=== PATIENT | female | born 1955 | race Caucasian/White ===

== ENCOUNTER 2016-12-22 19:48 | Emergency (ER) | payer OTHER ==
[2016-12-22 22:31] LABS: PLATELET COUNT 282 x10^3mcL (130-400); RED CELL DISTRIBUTION WIDTH 14.2 % (11.5-14.5)
[2016-12-22 22:41] LABS: CALCIUM 9.6 mg/dL (8.5-10.1); CARBON DIOXIDE 29.5 mmol/L (21-32); CHLORIDE SERUM 104 mmol/L (98-107); CREATININE SERUM 0.9 mg/dL (0.6-1.0); GFR1 > 60 mL/min; GLUCOSE SERUM 94 mg/dL (74-106); POTASSIUM SERUM 3.7 mmol/L (3.5-5.1); SODIUM SERUM 139 mmol/L (136-145)
[2016-12-22 22:45] LABS: ALKALINE PHOSPHATASE 288 U/L (46-116); ALT/SGPT 122 U/L (14-59); AST/SGOT 68 U/L (15-37); BILIRUBIN TOTAL 0.44 mg/dL (0.20-1.00); LIPASE 267 IU/L (73-393); TOTAL PROTEIN, SERUM 7.9 g/dL (6.4-8.2)
[2016-12-22 22:47] LABS: AMYLASE 126 U/L (25-115)
[2016-12-23 02:41] VITALS: BP 118/69
== END 2016-12-23 02:41 | disposition home or self-care (01) ==
LOC: ED 19:48
PROVIDERS: Emergency Medicine
DX: R19.7 Diarrhea, unspecified (principal); R11.10 Vomiting, unspecified; R10.9 Unspecified abdominal pain; Z88.0 Allergy status to penicillin
CPT/HCPCS: J2270; J2405; Q0092

== ENCOUNTER 2017-01-14 18:52 | Inpatient (IN) | payer OTHER ==
[~2017-01-14] VITALS: Ht 152.4 cm; Wt 45.6 kg
[2017-01-14 19:34] LABS: BASOPHIL % 0.4 % (0-2); PLATELET COUNT 210 x10^3mcL (130-400); RED CELL DISTRIBUTION WIDTH 13.8 % (11.5-14.5)
[2017-01-14 19:36] LABS: CALCIUM 9.2 mg/dL (8.5-10.1); CARBON DIOXIDE 27.1 mmol/L (21-32); POTASSIUM SERUM 4.1 mmol/L (3.5-5.1)
[2017-01-14 19:40] LABS: ALBUMIN 3.7 g/dL (3.4-5.0); BILIRUBIN TOTAL 0.63 mg/dL (0.20-1.00); TOTAL PROTEIN, SERUM 7.1 g/dL (6.4-8.2)
[2017-01-14] MEDS ORDERED: GABAPENTIN400 M1 PO (21:49)
[2017-01-14] MEDS ORDERED: LEVOTHYROXIN0.075 M2 PO (21:50)
[2017-01-14] MEDS ORDERED: XAN5 PO (21:50)
[2017-01-14] MEDS ORDERED: ZOF4 PO (21:50)
[2017-01-14 22:42] LABS: T3 TOTAL 0.66 ng/mL
[2017-01-14 22:45] LABS: FREE T4 1.17 ng/dL (0.76-1.46); FREE THYROXINE INDEX 2.8 ug/dL (1.4-4.5); T4(THYROXINE) 8.3 ug/dL (4.7-13.3)
[2017-01-14 22:53] VITALS: BP 145/88
[2017-01-14 23:12] LABS: MAGNESIUM 2.1 mg/dL (1.8-2.4); PHOSPHOROUS 3.1 mg/dL (2.5-4.9)
[2017-01-14 23:16] LABS: CHOLESTEROL/HDL RATIO 2.3
[2017-01-15 03:55] LABS: microscopic required? NO
[2017-01-15 04:03] LABS: urine erythrocyte NEGATIVE (NEGATIVE)
[2017-01-15 04:15] LABS: AMPHETAMINE QUAL UR NONE DETECTED (NEG <=1000)
[2017-01-15 05:10] VITALS: BP 121/69
[2017-01-15 06:30] LABS: BASOPHIL % 0.6 % (0-2); PLATELET COUNT 181 x10^3mcL (130-400); RED CELL DISTRIBUTION WIDTH 14.2 % (11.5-14.5)
[2017-01-15 06:33] LABS: CALCIUM 8.2 mg/dL (8.5-10.1); CARBON DIOXIDE 28.3 mmol/L (21-32); CHLORIDE SERUM 107 mmol/L (98-107); CREATININE SERUM 0.9 mg/dL (0.6-1.0); GFR1 > 60 mL/min; GLUCOSE SERUM 82 mg/dL (74-106); MAGNESIUM 2.1 mg/dL (1.8-2.4); PHOSPHOROUS 3.5 mg/dL (2.5-4.9); POTASSIUM SERUM 4.6 mmol/L (3.5-5.1); SODIUM SERUM 141 mmol/L (136-145)
[2017-01-15 09:43] VITALS: BP 134/63
[2017-01-15 13:19] VITALS: BP 103/69
[2017-01-15 18:30] VITALS: BP 141/72
[2017-01-15 21:43] VITALS: BP 128/79
[2017-01-16 05:37] VITALS: BP 130/84
[2017-01-16 07:19] LABS: BASOPHIL % 0.4 % (0-2); PLATELET COUNT 195 x10^3mcL (130-400); RED CELL DISTRIBUTION WIDTH 14.1 % (11.5-14.5)
[2017-01-16 07:25] LABS: CALCIUM 8.2 mg/dL (8.5-10.1); CARBON DIOXIDE 25.1 mmol/L (21-32); CHLORIDE SERUM 103 mmol/L (98-107); CREATININE SERUM 0.9 mg/dL (0.6-1.0); GFR1 > 60 mL/min; GLUCOSE SERUM 83 mg/dL (74-106); POTASSIUM SERUM 4.1 mmol/L (3.5-5.1); SODIUM SERUM 132 mmol/L (136-145)
[2017-01-16 09:24] VITALS: BP 119/74
[2017-01-16 09:36] LABS: CALCIUM 8.6 mg/dL (8.5-10.1); CARBON DIOXIDE 27.1 mmol/L (21-32); CHLORIDE SERUM 103 mmol/L (98-107); CREATININE SERUM 0.9 mg/dL (0.6-1.0); GFR1 > 60 mL/min; GLUCOSE SERUM 101 mg/dL (74-106); POTASSIUM SERUM 3.7 mmol/L (3.5-5.1); SODIUM SERUM 136 mmol/L (136-145)
[2017-01-16] MEDS ORDERED: OMEPRAZOLE40 M1 PO (16:49)
[2017-01-16] MEDS ORDERED: CARAFATE1 GM PO (17:00)
[2017-01-16] MEDS ORDERED: NORCO1 TA2 PO (17:02)
[2017-01-16] MEDS ORDERED: COLACE100 MG PO (17:02)
[2017-01-16 17:42] VITALS: BP 119/74
[2017-01-16 17:52] VITALS: BP 124/68
[2017-01-16 17:53] VITALS: BP 124/68
[2017-01-16 18:18] VITALS: BP 124/68
== END 2017-01-16 19:00 | disposition home or self-care (01) | DRG 392 ==
LOC: ED 18:52 → MU 22:11 → DU 22:11 → MU 01-16 09:41
PROVIDERS: Emergency Medicine; Internal Medicine Gastroenterology; ADMIT Family Medicine
PROC: 0DB78ZX Excision of Stomach, Pylorus, Via Natural or Artificial Opening Endoscopic, Diagnostic (ICD-10-PCS; principal; 2017-01-15 11:00)
DX: K29.70 Gastritis, unspecified, without bleeding (principal); K56.7 Ileus, unspecified; E03.9 Hypothyroidism, unspecified; F41.9 Anxiety disorder, unspecified; E78.5 Hyperlipidemia, unspecified; R74.0 Nonspecific elevation of levels of transaminase and lactic acid dehydrogenase [LDH]; Z88.0 Allergy status to penicillin; Z79.899 Other long term (current) drug therapy
CPT/HCPCS: 43235; 83880; 84439; 87046; 87046-59; C9113; J1200; J1610; J1885; J2250; J2270; J2310; J2405; J2550; J3010; J3490; J7030

== ENCOUNTER 2017-06-26 12:56 | Inpatient (IN) | payer OTHER ==
[~2017-06-26] VITALS: Ht 149.9 cm; Wt 52.7 kg
[~2017-06-26 12:56] MED LIST: CARAFATE1 GM PO; COLACE100 MG PO; GABAPENTIN400 M1 PO; LEVOTHYROXIN0.075 M2 PO; NORCO1 TA2 PO; OMEPRAZOLE40 M1 PO; XAN5 PO; ZOF4 PO
--- NOTE | 2017-06-26 13:27 | NUR ---
Patient came into the ER it s a day to be evaluated for the complaints of nausea, vomiting, and diarrhea which has been ongoing for the last 8 days. Patient reports that she is having at least 10 episodes of each every day.Patient also has a complaint of generalized abdominal pain which has more pain in the area of the epigastric region. Patient denies any hematemesis and blood in the stool. Patient does not have any objective signs of dehydration. Medical evalaution completed by dr. Stevens.
--- NOTE | 2017-06-26 13:35 | NUR ---
ED ASSESSMENT DOCUMENTED BY WILLIAMS FUENTES
[2017-06-26 13:54] LABS: BASOPHIL % 0.4 % (0-2); PLATELET COUNT 229 x10^3mcL (130-400); RED CELL DISTRIBUTION WIDTH 14.3 % (11.5-14.5)
[2017-06-26 14:04] LABS: CALCIUM 8.6 mg/dL (8.5-10.1); CARBON DIOXIDE 24.1 mmol/L (21-32); CHLORIDE SERUM 98 mmol/L (98-107); CREATININE SERUM 0.9 mg/dL (0.6-1.0); GFR1 > 60 mL/min; GLUCOSE SERUM 100 mg/dL (74-106); POTASSIUM SERUM 4.2 mmol/L (3.5-5.1); SODIUM SERUM 130 mmol/L (136-145)
[2017-06-26 14:17] LABS: UA SPECIFIC GRAVITY <=1.005 (1.005-1.035); microscopic required? YES; urine erythrocyte 1+ (NEGATIVE)
[2017-06-26 14:19] LABS: ALBUMIN 3.7 g/dL (3.4-5.0); ALKALINE PHOSPHATASE 129 U/L (46-116); ALT/SGPT 52 U/L (14-59); AMYLASE 118 U/L (25-115); AST/SGOT 33 U/L (15-37); BILIRUBIN TOTAL 0.31 mg/dL (0.20-1.00); CHOLESTEROL 195 mg/dL (<200); HDL CHOLESTEROL 51 mg/dL (40-60); LIPASE 243 IU/L (73-393); T4(THYROXINE) 9.9 ug/dL (4.7-13.3); TOTAL PROTEIN, SERUM 7.2 g/dL (6.4-8.2)
[2017-06-26 14:38] LABS: AMPHETAMINE QUAL UR NONE DETECTED (NEG <=1000)
[2017-06-26] MEDS ORDERED: PROTONIX40 MG PO (16:37)
[2017-06-26 17:00] LABS: MAGNESIUM 1.9 mg/dL (1.8-2.4); PHOSPHOROUS 3.4 mg/dL (2.5-4.9)
[2017-06-26 17:05] LABS: T3 TOTAL 0.67 ng/mL
--- NOTE | 2017-06-26 17:14 | NUR ---
REPORT CALLED TO PATRICIA ON TELEMETRY UNIT AT THIS TIME.
--- NOTE | 2017-06-26 17:30 | NUR ---
RECEIVED PT FROM ED VIA [facility], CAME IN DUE TO ABDOMINAL PAIN, NAUSEA, VOMITING AND DIARRHEA FOR 8 DAYS. AAOX4. NO SOB NOTED. DENIES CHEST PAIN/PRESSURE. C/O 10/10 PRESSURE ABDOMINAL PAIN AND MILD NAUSEA. STATED THAT SHE HAD EPISODES OF VOMITING AND DIARRHEA APPLIED PSYCHOLOGY PROFESSOR. VOIDS. IV SITE PATENT AND INTACT. SIDE RAILS UPX2. CALL LIGHT ON REACH. ENDORSED TO PRIMARY NURSE DENNIS FOR CONTINUITY OF CARE.
[2017-06-26 17:35] VITALS: BP 127/77
[2017-06-26 17:36] LABS: FREE T4 1.43 ng/dL (0.76-1.46); T4(THYROXINE) 9.4 ug/dL (4.7-13.3)
[2017-06-26 17:39] VITALS: Ht 149.9 cm; Wt 52.7 kg
[2017-06-26 17:44] VITALS: BP 116/75
--- NOTE | 2017-06-26 17:57 | NUR ---
ZOFRAN 4 MG IVP GIVEN ORDERED FOR C/O NAUSEA.
--- NOTE | 2017-06-26 18:28 | NUR ---
PT LEFT TO RADIOLOGY
--- NOTE | 2017-06-26 19:27 | NUR ---
REMAINS IN NO DISTRESS, AWAKE AND ALERT. BACK FROM CT. C/O ABD. DISCOMFORT. WILL BE MEDICATED BY NOC SHIFT NURSE. IVF INFUSING WELL. FAMILY AT BEDSIDE. WILL BE ENDORSED.
--- NOTE | 2017-06-26 20:00 | NUR ---
RECEIVED PT IN BED RESTING, LUNG SOUNDS CLEAR. TELE21 SHOWS NSR. NO CHEST PAIN NOTED. BS ACTIVE IN ALL FOUR QUADS. ABD APPEARS DISTENDED, SOFT. PT C/O PAIN TO MID ABD AND HEADACHE, MEDICATED WITH PERCOCET. IVF ONGOING, NS AT 90ML/HR TO LFA. SHIFT ASSESSMENT COMPLETED. CALL LIGHT WITHIN REACH. BED IS IN LOWEST POSITION. WILL CONTINUE TO MONITOR CLOSELY.
[2017-06-26 21:30] VITALS: BP 123/65
--- NOTE | 2017-06-26 21:55 | NUR ---
PT C/O DR ZEKE BARKER, AWAITING NEW ORDERS.
[2017-06-27] VITALS (7 sets, daily range): BP systolic 73–138; BP diastolic 40–79
--- NOTE | 2017-06-27 02:57 | NUR ---
PT APPEARS TO BE SLEEPING IN NO DISTRESS. IVF ONGOING. CALL LIGHT WITHIN REACH. WILL CONTINUE TO MONITOR CLOSELY.
--- NOTE | 2017-06-27 04:40 | NUR ---
PT C/O N/V, ZOFRAN GIVEN ORDERED. IVF ONGOING. CALL LIGHT WITHIN REACH. BED IS IN LOWEST POSITION. WILL CONTINUE TO MONITOR CLOSELY.
--- NOTE | 2017-06-27 06:04 | NUR ---
PT C/O PAIN TO ABD, N/V, MEDICATED WITH TORADOL, PT CANNOT TOLERATE ORAL MEDICATION AT THIS TIME. HELD ALL AM PO MEDICATION. CALL LIGHT WITHIN REACH. BED IS IN LOWEST POSITION. IVF ONGOING. WILL CONTINUE TO MONITOR CLOSELY.
[2017-06-27 06:30] LABS: BASOPHIL % 0.3 % (0-2); PLATELET COUNT 269 x10^3mcL (130-400); RED CELL DISTRIBUTION WIDTH 14.4 % (11.5-14.5)
[2017-06-27 06:42] LABS: CALCIUM 8.2 mg/dL (8.5-10.1); CARBON DIOXIDE 24.9 mmol/L (21-32); CHLORIDE SERUM 107 mmol/L (98-107); CREATININE SERUM 0.8 mg/dL (0.6-1.0); GFR1 > 60 mL/min; GLUCOSE SERUM 83 mg/dL (74-106); POTASSIUM SERUM 4.1 mmol/L (3.5-5.1); SODIUM SERUM 140 mmol/L (136-145)
--- NOTE | 2017-06-27 07:30 | NUR ---
PATIENT IS IN BED, AWAKE ALERT AND ORIENTED. [place] SPEAKING. C/O ABD PAIN. MEDICATED WT GI COCKTAIL ORDERED. IVF INFUSING WELL , SITE PATENT. RESP EVEN AND UNLABORED, LUNGS CLEAR ON ROOM AIR. NO DIARRHEA NOTED AT THIS TIME. AMBULATES AD ISAURO TO THE BATHROOM TELE 21 NSR. WILL CONTINUE TO MONITOR.
--- NOTE | 2017-06-27 08:15 | NUR ---
DR VIGIL AND MEDICAL TEAM INTO SEE PATIENT AND DISCUSS PLAN OF CARE.
--- NOTE | 2017-06-27 09:59 | NUR ---
PATIENT DOWN TO GI LAB AT THIS TIME FOR EGD. DR Laisha MCARTHUR WAS AT [facility] AND SPOKE TO THE PATIENT WITH BENGALI SPEAKING LOGISTICS PLANNING MANAGER AT BEDSIDE. CONSENT OBTAINED WITH USE OF LOGISTICS PLANNING MANAGER PHONE. PATIENT HAS BEEN NPO SINCE [facility] EXCEPT FOR MEDS. WILL CONTINUE TO MONITOR UPON RETURN TO THE FLOOR.
--- NOTE | 2017-06-27 12:02 | NUR ---
PATIENT DOWN TO GI LAB VIA BED AND RN AND TRANSPORTER AT THIS TIME.
--- NOTE | 2017-06-27 13:15 | NUR ---
PATIENT RETURNED FROM GI LAB VIA BED WITH ALFREDO HERNANDEZ AT BEDSIDE. PATIENT IS AWAKE AND ALERT. SITTING UP IN BED EATING LUNCH TRAY. NO FURTHER C/O PAIN AT THIS TIME. WILL CONTINUE TO MONITOR.
--- NOTE | 2017-06-27 16:30 | NUR ---
PATIENT IS IN BED. AWAKE ALERT AND ORIENTED. B/P 76/43. PATIENT DENIES ANY DIZZINESS OR WEAKNESS. DR BAY NOTIFIED. NEW ORDER FOR IV BOLUS.
--- NOTE | 2017-06-27 16:45 | NUR ---
IV BOLUS STARTED ORDERED. WILL CONTINUE TO MONITOR PATIENT. PATIENT REMAINS IN BED ALERT AND ORIENTED.
--- NOTE | 2017-06-27 18:35 | NUR ---
PATIENT SITTING UP IN BED. CONSUMED APPROX 80% OF HER DINNER TRAY. PATIENT C/O FEELING NAUSEATED. MEDICATED WITH ZOFRAN IV BY DAVID FUENTES ORDERED. PATIENT STATES SHE FEELS BETTER. NS BOLUS COMPLETED AND B/P 91/50. IVF INFUSING WELL AT 90ML/HR ORDERED. NO ACUTE DISTRESS NOTED. WILL ENDORSED TO [facility] NURSE.
--- NOTE | 2017-06-27 18:46 | NUR ---
I HAVE REVIEWED THE DATA COLLECTION BY TURNER (NAME): EVELIO BUSBY ENTERED ON (DATE/TIME): 06/27/17 I CONCUR WITH THE DATA AND ANY EXCEPTIONS OR COMMENTS ARE LISTED BELOW:
--- NOTE | 2017-06-27 19:53 | NUR ---
RECEIVED PT FROM PREVIOUS SHIFT. PT A/OX4. DENIES ABD PAIN. DENIES SOB ON RA. IV PATENT AND INFUSING WELL WITH NO S/S OF INFILTRATION. DENIES N/V. CALL LIGHT WITHIN REACH, BED IN LOW POSITION. WILL CONTINUE TO MONITOR.
--- NOTE | 2017-06-28 00:51 | NUR ---
PT C/O ITCHING TO BUE. BENADRYL PROVIDED. WILL CONTINUE TO MONITOR.
--- NOTE | 2017-06-28 01:31 | NUR ---
PT RESTING AT THIS TIME IN NO ACUTE DISTRESS. RR EVEN AND UNLABORED. IV PATENT. CALL LIGHT WITHIN REACH, BED IN LOW POSITION. WILL CONTINUE TO MONITOR.
[2017-06-28 05:42] VITALS: BP 100/55
[2017-06-28 06:51] LABS: CALCIUM 8.3 mg/dL (8.5-10.1); CARBON DIOXIDE 30.1 mmol/L (21-32); CHLORIDE SERUM 106 mmol/L (98-107); CREATININE SERUM 0.9 mg/dL (0.6-1.0); GFR1 > 60 mL/min; GLUCOSE SERUM 77 mg/dL (74-106); PHOSPHOROUS 3.5 mg/dL (2.5-4.9); POTASSIUM SERUM 4.5 mmol/L (3.5-5.1); SODIUM SERUM 138 mmol/L (136-145)
[2017-06-28 07:32] LABS: PLATELET COUNT 238 x10^3mcL (130-400); RED CELL DISTRIBUTION WIDTH 13.5 % (11.5-14.5)
[2017-06-28 07:36] LABS: BASOPHIL % 4.1 % (0-2)
--- NOTE | 2017-06-28 07:50 | NUR ---
RC'D PT RESTING IN BED WITH NO APPARENT SIGNS OF DISTRESS. PT A/A/O/X4, SPEECH CLEAR AND APPROPRIATE. ON TELE 21 WITH NSR. DENIES CHEST PAIN/PRESSURE. PALP PULSES, NO EDEMA NOTED. RESPIRATIONS EQUAL AND UNLABORED. LUNGS CTA. ON RA, DENIES SOB. ABDOMEN SOFT AND TENDER TO TOUCH. ACTIVE BS. DENIES N/V AT THIS TIME. VOIDS FREELY, DENIES BURNING. AMBUALTORY WITH BRP. SKIN W/D/I. DENIES PAIN AT THIS TIME. IV PATENT AND INFUSING. BED IN LOW POSITION. CALL LIGHT IN REACH. EDUCATED ON USING CALL LIGHT WHEN NEEDING ASSISTANCE. WILL CONTINUE TO MONITOR.
[2017-06-28 09:22] VITALS: BP 86/49
--- NOTE | 2017-06-28 09:30 | NUR ---
PT COMPLAINING OF NAUSEA. ADMINISTERED ZOFRAN IVP PRN PER MED REC. WILL CONTINUE TO MONITOR
--- NOTE | 2017-06-28 09:31 | NUR ---
HELD LISINOPRIL FOR LOW BP OF 86/49, HR 74. DR BAY NOTIFIED AND MADE AWARE. PT DENIES DIZZINESS/SOB. RESPIRATIONS EQUAL AND UNLABORED BILAT. BED IN LOW POSITION. PT EDUCATED TO USE CALL LIGHT WHEN NEEDING ASSISTANCE OUT OF BED DUE TO LOW BP. PT VERBALIZED UDNERSTANDING. CALL LIGHT IN REACH. WILL CONTINUE TO MONITOR.
--- NOTE | 2017-06-28 13:15 | NUR ---
PT RESTING IN BED WITH NO APPARENT SIGNS OF DISTRESS. RESPIRATIONS EQUAL AND UNLABORED. REPORTS PAIN IN ABDOMEN BUT DOES NOT WANT MEDICATION AT THIS TIME. BED IN LOW POSITION. CALL LIGHT IN REACH. WILL CONTINUE TO MONITOR.
[2017-06-28 13:19] VITALS: BP 101/53
--- NOTE | 2017-06-28 14:19 | NUR ---
PT COMPLAINING OF ABDOMINAL PAIN 02/20. RESPIRATIONS EQUAL AND UNLABORED. EDUCATED PT ON USING CALL LIGHT WHEN NEEDING ASSISTANCE DUE TO POSSIBLE SIDE EFFECTS. PT VERBALIZED UNDERSTANDING. BED IN LOW POSITION. CALL LIGHT IN REACH. WILL CONTINUE TO MONITOR.
[2017-06-28 14:34] VITALS: BP 101/53
[2017-06-28 17:57] VITALS: BP 98/62
--- NOTE | 2017-06-28 18:18 | NUR ---
TOOK OVER CARE OF PATIENT. PATIENT SITTING UP IN BED EATING DINNER. LAST BM /. IV AT 90ML/HR NS. PATIENT REPORTS THAT SHE STIL HAS SOME ABDOMINAL DISCOMFORT.
--- NOTE | 2017-06-28 19:40 | NUR ---
RECHECK THE PT B/P 120/67, MAP 85, HR 67, PT IS A/O X4, DENY ANY RESPIRATORY DISTRESS, DENY ANY PAIN OR DISCOMFORT, DENY ANY HEADACHE OR DIZZNIESS, REPORT BACK TO DR. BAY, DR. BAY WENT TO ASSESS THE PT AND STATE PT READY TO D/C HOME.
--- NOTE | 2017-06-28 20:35 | NUR ---
PT IS LEAVING FROM THE FLOOR, NO RESPIRATORY DISTRESS, DENY ANY PAIN, ALL DISCHARGE PAPER HAS BEEN RELEASED TO PT. ALL INSTRUCTION HAS BEEN TOLD TO PT. PT VERBAL UNDERSTAND. PT IS BEING WHEELED DOWN BY HEALTHCARE MANAGEMENT.
== END 2017-06-28 20:37 | disposition home or self-care (01) | DRG 392 ==
LOC: ED 12:56 → DU 16:19
PROVIDERS: Emergency Medicine; Internal Medicine Gastroenterology; ADMIT Family Medicine
PROC: 0DB98ZX Excision of Duodenum, Via Natural or Artificial Opening Endoscopic, Diagnostic (ICD-10-PCS; principal; 2017-06-27 10:00)
DX: K29.70 Gastritis, unspecified, without bleeding (principal); E87.1 Hypo-osmolality and hyponatremia; Z88.0 Allergy status to penicillin; Z90.49 Acquired absence of other specified parts of digestive tract; E03.9 Hypothyroidism, unspecified; I10 Essential (primary) hypertension; E78.5 Hyperlipidemia, unspecified; K21.9 Gastro-esophageal reflux disease without esophagitis; M54.2 Cervicalgia
CPT/HCPCS: 43235; 82962; 83880; 84439; J1200; J1610; J1885; J2250; J2310; J2405; J3010; J3490; J7030; J7040; J7042; Q0092; Q0163; Q9967

== ENCOUNTER 2017-11-18 06:51 | Inpatient (IN) | payer OTHER ==
[~2017-11-18] VITALS: Ht 149.9 cm; Wt 52.0 kg
[~2017-11-18 06:51] MED LIST changes: +PROTONIX40 MG PO
[2017-11-18 06:58] VITALS: Ht 149.9 cm; Wt 52.0 kg
[2017-11-18 07:49] LABS: BASOPHIL % 0.5 % (0-2); PLATELET COUNT 225 x10^3mcL (130-400); RED CELL DISTRIBUTION WIDTH 14.4 % (11.5-14.5)
[2017-11-18 08:15] LABS: CARBON DIOXIDE 26.2 mmol/L (21-32); CHLORIDE SERUM 101 mmol/L (98-107); CREATININE SERUM 0.9 mg/dL (0.6-1.0); GFR1 > 60 mL/min; GLUCOSE SERUM 72 mg/dL (74-106); POTASSIUM SERUM 4.8 mmol/L (3.5-5.1); SODIUM SERUM 133 mmol/L (136-145)
[2017-11-18 08:19] LABS: ALBUMIN 3.6 g/dL (3.4-5.0); ALKALINE PHOSPHATASE 465 U/L (46-116); ALT/SGPT 341 U/L (14-59); AST/SGOT 393 U/L (15-37); BILIRUBIN TOTAL 0.7 mg/dL (0.20-1.00); LIPASE 893 IU/L (73-393); TOTAL PROTEIN, SERUM 6.8 g/dL (6.4-8.2)
[2017-11-18 08:28] LABS: AMYLASE 194 U/L (25-115)
[2017-11-18 10:43] LABS: MAGNESIUM 2.2 mg/dL (1.8-2.4); PHOSPHOROUS 3.4 mg/dL (2.5-4.9)
[2017-11-18 10:44] LABS: CHOLESTEROL/HDL RATIO 2.5
[2017-11-18 10:46] VITALS: BP 91/56
[2017-11-18 10:49] LABS: T3 TOTAL 0.8 ng/mL
[2017-11-18 10:51] LABS: FREE T4 1.27 ng/dL (0.76-1.46); FREE THYROXINE INDEX 3.3 ug/dL (1.4-4.5); T4(THYROXINE) 10.3 ug/dL (4.7-13.3)
[2017-11-18 11:00] LABS: microscopic required? YES; urine erythrocyte TRACE (NEGATIVE)
[2017-11-18 11:22] LABS: AMPHETAMINE QUAL UR NONE DETECTED (NEG <=1000)
[2017-11-18 13:25] VITALS: BP 91/52
[2017-11-18 16:58] VITALS: BP 97/50
[2017-11-18 21:48] VITALS: BP 98/57
[2017-11-19 06:02] VITALS: BP 107/61
[2017-11-19 06:04] VITALS: BP 107/61
[2017-11-19 07:06] LABS: BASOPHIL % 0.7 % (0-2); PLATELET COUNT 171 x10^3mcL (130-400); RED CELL DISTRIBUTION WIDTH 14.4 % (11.5-14.5)
[2017-11-19 07:48] LABS: CALCIUM 7.6 mg/dL (8.5-10.1); CARBON DIOXIDE 24.2 mmol/L (21-32); CHLORIDE SERUM 108 mmol/L (98-107); CREATININE SERUM 0.8 mg/dL (0.6-1.0); GFR1 > 60 mL/min; GLUCOSE SERUM 66 mg/dL (74-106); POTASSIUM SERUM 4.4 mmol/L (3.5-5.1); SODIUM SERUM 136 mmol/L (136-145)
[2017-11-19 09:50] VITALS: BP 93/51
[2017-11-19 13:11] VITALS: BP 100/51
[2017-11-19 16:59] VITALS: BP 124/66
[2017-11-19 21:20] VITALS: BP 114/63
[2017-11-20 06:27] VITALS: BP 120/71
[2017-11-20 06:42] LABS: BASOPHIL % 0.8 % (0-2); PLATELET COUNT 172 x10^3mcL (130-400); RED CELL DISTRIBUTION WIDTH 14.3 % (11.5-14.5)
[2017-11-20 07:02] LABS: CALCIUM 8.1 mg/dL (8.5-10.1); CARBON DIOXIDE 26.2 mmol/L (21-32); CHLORIDE SERUM 104 mmol/L (98-107); CREATININE SERUM 0.8 mg/dL (0.6-1.0); GFR1 > 60 mL/min; GLUCOSE SERUM 60 mg/dL (74-106); MAGNESIUM 1.9 mg/dL (1.8-2.4); PHOSPHOROUS 2.8 mg/dL (2.5-4.9); POTASSIUM SERUM 3.9 mmol/L (3.5-5.1); SODIUM SERUM 138 mmol/L (136-145)
[2017-11-20 09:21] VITALS: BP 110/66
[2017-11-20 10:19] LABS: BILIRUBIN DIRECT 0.15 mg/dL (0.0-0.2); BILIRUBIN TOTAL 0.48 mg/dL (0.20-1.00)
[2017-11-20 10:20] LABS: ALBUMIN 2.8 g/dL (3.4-5.0); TOTAL PROTEIN, SERUM 5.7 g/dL (6.4-8.2)
[2017-11-20 13:44] VITALS: BP 128/59
[2017-11-20 17:47] VITALS: BP 116/81
[2017-11-20 21:01] VITALS: BP 116/71
[2017-11-21 06:01] VITALS: BP 132/71
[2017-11-21 06:17] LABS: ALKALINE PHOSPHATASE 310 U/L (46-116); ALT/SGPT 122 U/L (14-59); AST/SGOT 66 U/L (15-37); BILIRUBIN TOTAL 0.5 mg/dL (0.20-1.00); CALCIUM 8.3 mg/dL (8.5-10.1); CARBON DIOXIDE 26.6 mmol/L (21-32); CHLORIDE SERUM 106 mmol/L (98-107); CREATININE SERUM 0.8 mg/dL (0.6-1.0); GFR1 > 60 mL/min; GLUCOSE SERUM 84 mg/dL (74-106); POTASSIUM SERUM 4.4 mmol/L (3.5-5.1); SODIUM SERUM 141 mmol/L (136-145)
[2017-11-21 06:24] LABS: ALBUMIN 2.9 g/dL (3.4-5.0); TOTAL PROTEIN, SERUM 5.3 g/dL (6.4-8.2)
[2017-11-21 06:56] LABS: BASOPHIL % 0.5 % (0-2); PLATELET COUNT 189 x10^3mcL (130-400); RED CELL DISTRIBUTION WIDTH 14.4 % (11.5-14.5)
[2017-11-21 17:05] VITALS: BP 138/77
[2017-11-21 21:32] VITALS: BP 144/72
[2017-11-22 05:47] VITALS: BP 111/64
[2017-11-22 06:12] LABS: BASOPHIL % 0.6 % (0-2); PLATELET COUNT 181 x10^3mcL (130-400); RED CELL DISTRIBUTION WIDTH 14.4 % (11.5-14.5)
[2017-11-22 06:30] LABS: CALCIUM 8.3 mg/dL (8.5-10.1); CARBON DIOXIDE 27.1 mmol/L (21-32); CHLORIDE SERUM 107 mmol/L (98-107); CREATININE SERUM 0.8 mg/dL (0.6-1.0); GFR1 > 60 mL/min; GLUCOSE SERUM 92 mg/dL (74-106); POTASSIUM SERUM 3.6 mmol/L (3.5-5.1); SODIUM SERUM 140 mmol/L (136-145)
[2017-11-22 09:53] VITALS: BP 111/64
[2017-11-22 10:09] VITALS: BP 111/73
[2017-11-22] MEDS ORDERED: CAR1 PO (13:40)
[2017-11-22] MEDS ORDERED: GAS-X80 M2 PO (13:59)
== END 2017-11-22 14:30 | disposition home or self-care (01) | DRG 439 ==
LOC: ED 06:51 → DU 09:17
PROVIDERS: Family Medicine; Internal Medicine Gastroenterology; Specialist; Student in an Organized Health Care Education/Training Program
PROC: 0F798ZZ Dilation of Common Bile Duct, Via Natural or Artificial Opening Endoscopic (ICD-10-PCS; principal; 2017-11-21 09:30)
PROC: 0FB98ZX Excision of Common Bile Duct, Via Natural or Artificial Opening Endoscopic, Diagnostic (ICD-10-PCS; 2017-11-21 09:30)
PROC: 0DB68ZX Excision of Stomach, Via Natural or Artificial Opening Endoscopic, Diagnostic (ICD-10-PCS; 2017-11-21 09:30)
DX: K85.90 Acute pancreatitis without necrosis or infection, unspecified (principal); E87.1 Hypo-osmolality and hyponatremia; E44.0 Moderate protein-calorie malnutrition; R74.0 Nonspecific elevation of levels of transaminase and lactic acid dehydrogenase [LDH]; K86.1 Other chronic pancreatitis; A08.4 Viral intestinal infection, unspecified; K29.70 Gastritis, unspecified, without bleeding; E03.9 Hypothyroidism, unspecified; E11.9 Type 2 diabetes mellitus without complications; K21.9 Gastro-esophageal reflux disease without esophagitis; Z88.0 Allergy status to penicillin; Z68.22 Body mass index [BMI] 22.0-22.9, adult; Z90.49 Acquired absence of other specified parts of digestive tract; Z80.51 Family history of malignant neoplasm of kidney; Z83.3 Family history of diabetes mellitus
CPT/HCPCS: 43262; 74181; 82962; 83880; 84439; C1769; C2625; C9113; J1170; J1610; J1885; J2270; J2405; J3010; J7030; Q0092; Q0162; Q9966; Q9967

== ENCOUNTER 2018-02-25 01:06 | Emergency (ER) | payer OTHER ==
[~2018-02-25] VITALS: Ht 157.5 cm; Wt 51.2 kg
[~2018-02-25 01:06] MED LIST changes: +CAR1 PO; +GAS-X80 M2 PO
[2018-02-25 01:14] VITALS: Ht 157.5 cm; Wt 51.2 kg
[2018-02-25 07:16] LABS: CALCIUM 8.9 mg/dL (8.5-10.1); CARBON DIOXIDE 27.4 mmol/L (21-32); CHLORIDE SERUM 102 mmol/L (98-107); CREATININE SERUM 0.9 mg/dL (0.6-1.0); GFR1 > 60 mL/min; GLUCOSE SERUM 97 mg/dL (74-106); POTASSIUM SERUM 4.4 mmol/L (3.5-5.1); SODIUM SERUM 137 mmol/L (136-145)
[2018-02-25 07:21] LABS: ALBUMIN 3.4 g/dL (3.4-5.0); ALKALINE PHOSPHATASE 132 U/L (46-116); ALT/SGPT 36 U/L (14-59); AST/SGOT 34 U/L (15-37); BILIRUBIN TOTAL 0.32 mg/dL (0.20-1.00); LIPASE 248 IU/L (73-393); TOTAL PROTEIN, SERUM 6.8 g/dL (6.4-8.2)
[2018-02-25 07:28] LABS: BASOPHIL % 0.6 % (0-2); PLATELET COUNT 208 x10^3mcL (130-400); RED CELL DISTRIBUTION WIDTH 13.9 % (11.5-14.5)
[2018-02-25 08:24] VITALS: BP 113/74
== END 2018-02-25 08:34 | disposition home or self-care (01) ==
LOC: ED 01:06
PROVIDERS: Emergency Medicine
DX: K29.70 Gastritis, unspecified, without bleeding (principal); M13.812 Other specified arthritis, left shoulder; M13.851 Other specified arthritis, right hip; M81.0 Age-related osteoporosis without current pathological fracture; Z88.0 Allergy status to penicillin
CPT/HCPCS: C9113; J2270; J2405; J7030; Q0092

== ENCOUNTER 2018-10-10 21:57 | Emergency (ER) | payer OTHER ==
[~2018-10-10] VITALS: Ht 149.9 cm; Wt 55.3 kg
[2018-10-10 22:17] VITALS: Ht 149.9 cm; Wt 55.3 kg
[2018-10-10 23:56] LABS: BASOPHIL % 0.5 % (0-2); PLATELET COUNT 224 x10^3mcL (130-400); RED CELL DISTRIBUTION WIDTH 13.2 % (11.5-14.5)
[2018-10-11] LABS: CALCIUM 8.9 mg/dL (8.5-10.1); CARBON DIOXIDE 29.7 mmol/L (21-32); CHLORIDE SERUM 106 mmol/L (98-107); CREATININE SERUM 0.9 mg/dL (0.6-1.0); GFR1 > 60 mL/min; GLUCOSE SERUM 87 mg/dL (74-106); POTASSIUM SERUM 4.3 mmol/L (3.5-5.1); SODIUM SERUM 141 mmol/L (136-145)
[2018-10-11 00:06] LABS: ALKALINE PHOSPHATASE 129 U/L (46-116); ALT/SGPT 36 U/L (14-59); AST/SGOT 22 U/L (15-37); BILIRUBIN TOTAL 0.1 mg/dL (0.20-1.00); LIPASE 307 IU/L (73-393); TOTAL PROTEIN, SERUM 6.8 g/dL (6.4-8.2)
[2018-10-11 00:08] LABS: ALBUMIN 3.2 g/dL (3.4-5.0); AMYLASE 163 U/L (25-115)
[2018-10-11 00:26] LABS: UA SPECIFIC GRAVITY >=1.030 (1.005-1.035); microscopic required? YES; urine erythrocyte NEGATIVE (NEGATIVE)
[2018-10-11 01:24] VITALS: BP 104/62
== END 2018-10-11 01:24 | disposition home or self-care (01) ==
LOC: ED 21:57
PROVIDERS: Specialist
DX: R10.13 Epigastric pain (principal); R11.10 Vomiting, unspecified; K21.9 Gastro-esophageal reflux disease without esophagitis; Z90.49 Acquired absence of other specified parts of digestive tract; Z98.890 Other specified postprocedural states; Z88.0 Allergy status to penicillin
CPT/HCPCS: 36415; J1885; J3010; Q0092; Q0162

== ENCOUNTER 2018-12-06 19:31 | Emergency (ER) | payer OTHER ==
[~2018-12-06] VITALS: Ht 152.4 cm; Wt 53.1 kg
[2018-12-06 19:37] VITALS: Ht 152.4 cm; Wt 53.1 kg
[2018-12-06 20:18] LABS: BASOPHIL % 0.6 % (0-2); PLATELET COUNT 223 x10^3mcL (130-400); RED CELL DISTRIBUTION WIDTH 13.7 % (11.5-14.5)
[2018-12-06 20:24] LABS: CALCIUM 8.9 mg/dL (8.5-10.1); CARBON DIOXIDE 27.8 mmol/L (21-32); CHLORIDE SERUM 103 mmol/L (98-107); CREATININE SERUM 0.9 mg/dL (0.6-1.0); GFR1 > 60 mL/min; GLUCOSE SERUM 92 mg/dL (74-106); SODIUM SERUM 138 mmol/L (136-145)
[2018-12-06 20:29] LABS: ALBUMIN 3.8 g/dL (3.4-5.0); ALKALINE PHOSPHATASE 232 U/L (46-116); ALT/SGPT 95 U/L (14-59); AST/SGOT 77 U/L (15-37); BILIRUBIN TOTAL 0.26 mg/dL (0.20-1.00); LIPASE 205 IU/L (73-393); TOTAL PROTEIN, SERUM 7.4 g/dL (6.4-8.2)
[2018-12-07] VITALS: BP 117/77
== END 2018-12-07 | disposition home or self-care (01) ==
LOC: ED 19:31
DX: K29.70 Gastritis, unspecified, without bleeding (principal); R19.7 Diarrhea, unspecified; R11.2 Nausea with vomiting, unspecified; K21.9 Gastro-esophageal reflux disease without esophagitis; R10.13 Epigastric pain; Z88.0 Allergy status to penicillin
CPT/HCPCS: J2270; J2405; J7030; Q0092

== ENCOUNTER 2018-12-31 18:04 | Emergency (ER) | payer OTHER ==
[~2018-12-31] VITALS: Ht 149.9 cm; Wt 52.6 kg
[2018-12-31 18:26] VITALS: Ht 149.9 cm; Wt 52.6 kg
[2018-12-31 20:48] LABS: BASOPHIL % 0.6 % (0-2); PLATELET COUNT 228 x10^3mcL (130-400); RED CELL DISTRIBUTION WIDTH 13.4 % (11.5-14.5)
[2018-12-31 20:58] LABS: CALCIUM 9.7 mg/dL (8.5-10.1); CARBON DIOXIDE 25.1 mmol/L (21-32); CHLORIDE SERUM 98 mmol/L (98-107); CREATININE SERUM 0.7 mg/dL (0.6-1.0); GFR1 > 60 mL/min; GLUCOSE SERUM 96 mg/dL (74-106); POTASSIUM SERUM 4.1 mmol/L (3.5-5.1); SODIUM SERUM 133 mmol/L (136-145)
[2018-12-31 21:02] LABS: ALBUMIN 3.5 g/dL (3.4-5.0); ALKALINE PHOSPHATASE 354 U/L (46-116); ALT/SGPT 112 U/L (14-59); AST/SGOT 105 U/L (15-37); BILIRUBIN TOTAL 0.51 mg/dL (0.20-1.00); LIPASE 136 IU/L (73-393); TOTAL PROTEIN, SERUM 7.3 g/dL (6.4-8.2)
[2019-01-01 01:52] VITALS: BP 109/66
== END 2019-01-01 01:52 | disposition home or self-care (01) ==
LOC: ED 18:04
PROVIDERS: Emergency Medicine
DX: R10.13 Epigastric pain (principal); R10.84 Generalized abdominal pain; M19.90 Unspecified osteoarthritis, unspecified site; Z88.0 Allergy status to penicillin
CPT/HCPCS: 36415; J2270; Q0162

== ENCOUNTER 2019-03-24 14:46 | Emergency (ER) | payer OTHER ==
[~2019-03-24] VITALS: Ht 149.9 cm; Wt 50.3 kg
[2019-03-24 14:56] VITALS: Ht 149.9 cm; Wt 50.3 kg
[2019-03-24 16:07] LABS: BASOPHIL % 0.5 % (0-2); PLATELET COUNT 206 x10^3mcL (130-400); RED CELL DISTRIBUTION WIDTH 14.1 % (11.5-14.5)
[2019-03-24 16:10] LABS: CARBON DIOXIDE 27.2 mmol/L (21-32)
[2019-03-24 16:16] LABS: ALBUMIN 3.4 g/dL (3.4-5.0); BILIRUBIN TOTAL 0.32 mg/dL (0.20-1.00); TOTAL PROTEIN, SERUM 7.2 g/dL (6.4-8.2)
[2019-03-24 16:24] LABS: CALCIUM 9.4 mg/dL (8.5-10.1)
[2019-03-24 19:08] VITALS: BP 117/74
== END 2019-03-24 19:08 | disposition home or self-care (01) ==
LOC: ED 14:46
PROVIDERS: Emergency Medicine
DX: R10.816 Epigastric abdominal tenderness (principal); R11.10 Vomiting, unspecified; R51 Headache; R53.1 Weakness; M19.90 Unspecified osteoarthritis, unspecified site
CPT/HCPCS: J2405; J7030

== ENCOUNTER 2019-03-26 18:09 | Emergency (ER) | payer OTHER ==
[~2019-03-26] VITALS: Ht 152.4 cm; Wt 50.3 kg
[2019-03-26 18:30] VITALS: Ht 152.4 cm; Wt 50.3 kg
[2019-03-26 19:14] LABS: BASOPHIL % 0.6 % (0-2); PLATELET COUNT 210 x10^3mcL (130-400); RED CELL DISTRIBUTION WIDTH 13.8 % (11.5-14.5)
[2019-03-26 19:21] LABS: CALCIUM 9.3 mg/dL (8.5-10.1); CARBON DIOXIDE 26.7 mmol/L (21-32); CHLORIDE SERUM 103 mmol/L (98-107); CREATININE SERUM 0.8 mg/dL (0.6-1.0); GFR1 > 60 mL/min; GLUCOSE SERUM 89 mg/dL (74-106); POTASSIUM SERUM 3.8 mmol/L (3.5-5.1); SODIUM SERUM 140 mmol/L (136-145)
[2019-03-26 19:25] LABS: ALBUMIN 3.7 g/dL (3.4-5.0); ALKALINE PHOSPHATASE 255 U/L (46-116); ALT/SGPT 97 U/L (14-59); AST/SGOT 49 U/L (15-37); BILIRUBIN TOTAL 0.4 mg/dL (0.20-1.00); LIPASE 144 IU/L (73-393); TOTAL PROTEIN, SERUM 7.6 g/dL (6.4-8.2)
[2019-03-27 00:31] VITALS: BP 103/62
== END 2019-03-27 01:11 | disposition home or self-care (01) ==
LOC: ED 18:09
PROVIDERS: Emergency Medicine
DX: R10.84 Generalized abdominal pain (principal); R11.10 Vomiting, unspecified; R20.2 Paresthesia of skin; M81.0 Age-related osteoporosis without current pathological fracture; Z88.0 Allergy status to penicillin
CPT/HCPCS: J2270; J2405; J2765; J3010; J3490; J7030; Q9967

== ENCOUNTER 2019-03-29 21:11 | Inpatient (IN) | payer OTHER ==
[~2019-03-29] VITALS: Ht 149.9 cm; Wt 50.0 kg
[2019-03-29 21:44] VITALS: Ht 149.9 cm; Wt 50.0 kg
--- NOTE | 2019-03-29 21:47 | NUR ---
EKG IN PROGRESS IN TRIAGE
[2019-03-29 22:37] LABS: BASOPHIL % 1.3 % (0-2); PLATELET COUNT 223 x10^3mcL (130-400)
--- NOTE | 2019-03-29 22:44 | NUR ---
PATIENT SEEN WITH C/O LEFT ARM , LEG PAIN, FACE PAIN. PATIENT WAS SEEN BY MD. SALINE LOCK INSERTED. PATIENT MEDICATED WITH TORADOL AND ZOFRAN.
[2019-03-29 22:54] LABS: CARBON DIOXIDE 25.5 mmol/L (21-32); CHLORIDE SERUM 100 mmol/L (98-107); CREATININE SERUM 0.9 mg/dL (0.6-1.0); GFR1 > 60 mL/min; GLUCOSE SERUM 105 mg/dL (74-106); POTASSIUM SERUM 3.8 mmol/L (3.5-5.1); SODIUM SERUM 138 mmol/L (136-145)
[2019-03-29 23:03] LABS: ALBUMIN 3.9 g/dL (3.4-5.0); ALKALINE PHOSPHATASE 237 U/L (46-116); ALT/SGPT 78 U/L (14-59); AST/SGOT 42 U/L (15-37); BILIRUBIN TOTAL 0.3 mg/dL (0.20-1.00); LIPASE 149 IU/L (73-393); TOTAL PROTEIN, SERUM 7.5 g/dL (6.4-8.2)
--- NOTE | 2019-03-29 23:45 | NUR ---
PATIENT IS SLEEPING, NO DISTRESS.
--- NOTE | 2019-03-30 00:35 | NUR ---
REPORT WAS GIVEN TO DHARA. PATIENT TRANSPORTED TO [address]
--- NOTE | 2019-03-30 00:55 | NUR ---
RECEIVED FROM ED,PUT IN ROOM 239 B AND MADE COMFORTABLE.BRIANSUR PATIENT.FARHAT WILL ADMIT PATIENT.
[2019-03-30 01:12] VITALS: BP 119/79
--- NOTE | 2019-03-30 01:20 | NUR ---
RECEIVED PT FROM ER, PT ADMIT FOR INTRACTABLE VOMITING AND TRANSAMINITIS, PT IS A/O X4, VERBAL RESPONSIVE, LUNG SOUND CLEAR BILATERAL, NO COUGH, NO SOB,. PT DENY ANY CHEST PAIN OR DISCOMFORT, BOWEL SOUND PRESENT ALL 4 QUADRANTS, NO DISTENTION, PT C/O ABD PAIN ALL 4 QUADRANTS, 10/10 FOR MORE THAN 8 DAYS, AND N/V MORE THAN 8 DAYS. PEDAL PULSE PRESENT BOTH FEET, NO EDEMA, IV AT LEFT HAND, NO LEAKING, NO INFILTRATION. ALL ADLS ASSIST, ALL NEED MET, CALL LIGHT IN REACH, WILL CONTINUE TO MONITOR.
--- NOTE | 2019-03-30 02:01 | NUR ---
NS AT 100CC/ HOUR.IV SITE LHAND,EXTENSION TUBING APPLIED FOR EASIER HANDLING,NURSE AND PATIENT.PATIENT MAINLY LITHUANIAN,NEEDS ANTICIPATED.WAS GIVEN MSO4 AT 0118.WANTING ALSO ZOFRAN BUT NOT DUE,WAS GIVEN IN ER PRIOR TO COMING UP HERE.GEN WEAKNESS,FALL PRECAUTION,REMINDED TO CALL FOR ASSISTANCE.
--- NOTE | 2019-03-30 02:44 | NUR ---
NEW IV RATE 125 CC/ HOUR.
--- NOTE | 2019-03-30 02:57 | NUR ---
ASSISTED TO RESTROOM,UA,UDS COLLECTED.WILL SEND TO LAB.
[2019-03-30 03:06] LABS: microscopic required? NO
--- NOTE | 2019-03-30 03:17 | NUR ---
PATIENT NPO,DR Laisha MCARTHUR CONSULT.NS AT 125 CC/ HOUR.CALL LIGHT IN REACH.
[2019-03-30 03:47] LABS: UA SPECIFIC GRAVITY 1.015 (1.005-1.035); urine erythrocyte NEGATIVE (NEGATIVE)
[2019-03-30 04:17] LABS: AMPHETAMINE QUAL UR NONE DETECTED (See below)
--- NOTE | 2019-03-30 06:12 | NUR ---
PATIENT HAD PAIN SHOT,MSO4,AND ZOFRAN GIVEN.NO VOMITING SO FAR.CT OF ABD STOOL IN COLON MODERATE,SENOKOT ORDERED.
[2019-03-30 06:35] VITALS: BP 111/60
[2019-03-30 07:15] LABS: BASOPHIL % 0.2 % (0-2); PLATELET COUNT 179 x10^3mcL (130-400); RED CELL DISTRIBUTION WIDTH 14.1 % (11.5-14.5)
--- NOTE | 2019-03-30 07:15 | NUR ---
RECIEVED PT RESING IN BED WITH NO DISTRESS NOTED. PT NPO AT THIS TIME. A/OX4 WITH NO C/O COVARRUBIAS OR DIZZINESS. IV IN LF INTACAT AND PATENT WITH NO REDNESS OR INFLAMMATION. SAFETY PRECAUTIONS IN PLACE, CALL LIGHT WITHIN REACH, WILL MONITOR.
[2019-03-30 07:36] LABS: CALCIUM 8.7 mg/dL (8.5-10.1); CHLORIDE SERUM 105 mmol/L (98-107); CREATININE SERUM 0.9 mg/dL (0.6-1.0); GFR1 > 60 mL/min; GLUCOSE SERUM 85 mg/dL (74-106); MAGNESIUM 2.4 mg/dL (1.8-2.4); PHOSPHOROUS 3.8 mg/dL (2.5-4.9); POTASSIUM SERUM 4.1 mmol/L (3.5-5.1); SODIUM SERUM 139 mmol/L (136-145)
[2019-03-30 09:06] VITALS: BP 122/69
--- NOTE | 2019-03-30 11:09 | NUR ---
PT C/O 01/21 ABD PAIN, MEDICATED WITH NORCO PER EMAR, WILL REASSESS.
--- NOTE | 2019-03-30 14:00 | NUR ---
PT STABLE WITH NO C/O DISTRESS. FAMILY AT BEDSIDE, CALL LIGHT WITHIN REACH, SAFETY PREC IN PLACE, WILL MONITOR.
--- NOTE | 2019-03-30 17:00 | NUR ---
BOWEL PREP STARTED. NEXT DOSE DUE AT 2100, WILL ENDORSE TO NIGHT NURSE.
[2019-03-30 17:33] VITALS: BP 148/86
--- NOTE | 2019-03-30 18:27 | NUR ---
PT STABLE AT THIS TIME WITH NO C/O PAIN, DISTRESS, OR SOB. TOLERATED ALL CARES WELL. VS WNL. CONSENTS SIGNED FOR COLONOSCOPY PROCEDURE TOMORROW. IV INTACT AND PATENT WITH NO REDNESS OR INFILTRATION NOTED. NS RUNNING AT 125ML/HR. SAFETY PRECAUTIONS IN PLACE, CALL LIGHT WITHIN REACH, WILL ENDORSE TO NIGHT NURSE.
--- NOTE | 2019-03-30 19:30 | NUR ---
PT IS A/O x4. MED SURG. DENIES ANY CHEST PAIN OR PRESSURE. PULSES ARE PRESENT. NO EDEMA NOTED. LUNGS CLEAR IN ALL FEILDS. ON RA, DENIES ANY SOB. NO SIGN OF RESP DISTRESS. EQUAL CHEST RISE AND FALL. BOWEL SOUNDS PRESENT X4. DENIES ANY ABD PAIN, N/V. PT IS COMPLETING BOWEL PROGRAM FOR TOMORROW PROCEDURE. INSTRUCT PT NOT TO FLUSH TOILET TO ASSESS BM. SKIN WARM AND INTACT. DENIES ANY PAIN AT THIS TIME. IV ON LH INTACT AND PATENT. NO SIGN OF INFILTRATION OR IRRITATION NOTED. FAMILY IS AT BEDSIDE. BED IS AT LOWEST SETTING. CALL LIGHT WITHIN REACH. SIDE RAILS UP x2 FOR PT SAFETY. WILL CONTINUE TO [facility].
[2019-03-30 22:04] VITALS: BP 103/64
--- NOTE | 2019-03-31 00:09 | NUR ---
PT IS RESTING IN BED WITH BOTH EYES CLOSED. BREATHING EVEN AND UNLBORED. NO SIGN OF DISTRESS NOTED. BOWEL PREP COMPLETED. BED IS AT LOWEST SETTING. CALL LIGHT WITHIN REACH. WILL CONTINUE TO MONTIOR.
[2019-03-31 06:04] VITALS: BP 117/64
--- NOTE | 2019-03-31 06:30 | NUR ---
PT IS RESTING IN BED. DENIES ANY PAIN OR DISTRESS. PT BEEN NPO FOR TODAYS PROCEDURE. PT BM ARE NOW CLEAR AND WATERY. NO ACUTE EVENT OCCURED AT NIGHT. IV INTACT AND PATENT. BED IS AT LOWEST SETTING. CALL LIGHT WITHIN REACH. WILL ENDORSE TO AM NURSE.
[2019-03-31 07:33] LABS: ALBUMIN 2.8 g/dL (3.4-5.0); BILIRUBIN DIRECT 0.12 mg/dL (0.0-0.2); BILIRUBIN TOTAL 0.41 mg/dL (0.20-1.00); TOTAL PROTEIN, SERUM 5.9 g/dL (6.4-8.2)
[2019-03-31 07:43] LABS: BASOPHIL % 0.5 % (0-2); PLATELET COUNT 192 x10^3mcL (130-400); RED CELL DISTRIBUTION WIDTH 14.4 % (11.5-14.5)
--- NOTE | 2019-03-31 07:45 | NUR ---
PATIENT IS RESTING IN BED, FAMILY AT BEDSIDE. PATIENT DENIES PAIN. A/OX4, SAO TOMEAN SPEAKING. PATEINT DENIES SOB, ON ROOM AIR. LAST BM WAS CLEAR. PATIENT IS AMBULATORY, WITH NO ASSIST. NS IV INFUSING TO LEFT HAND AT 125ML/HR, IV SITE CDI & PATENT, NO S/S OF INFILTRATION. CALL LIGHT WITHIN REACH, BED IN LOW POSITION, WILL CONTINUE TO MONITOR FOR CHANGES.
--- NOTE | 2019-03-31 08:01 | NUR ---
REPORT GIVEN TO GI LAB NURSE. CONSENT FORM & CHECKLIST PLACED IN PATIENT CHART. IV TO LEFT HAND SALINE LOCK.
--- NOTE | 2019-03-31 08:15 | NUR ---
PATIENT WENT DOWN TO GI LAB.
[2019-03-31 08:58] VITALS: BP 124/75
[2019-03-31 09:21] LABS: CALCIUM 7.7 mg/dL (8.5-10.1); CARBON DIOXIDE 21.9 mmol/L (21-32); CHLORIDE SERUM 109 mmol/L (98-107); CREATININE SERUM 0.8 mg/dL (0.6-1.0); GFR1 > 60 mL/min; GLUCOSE SERUM 79 mg/dL (74-106); MAGNESIUM 1.9 mg/dL (1.8-2.4); PHOSPHOROUS 3.8 mg/dL (2.5-4.9); SODIUM SERUM 141 mmol/L (136-145)
--- NOTE | 2019-03-31 09:30 | NUR ---
PATIENT ARRIVED UP FROM GI LAB. WILL CONTINUE TO MONITOR FOR CHANGES.
--- NOTE | 2019-03-31 14:30 | NUR ---
PATIENT IS SITTING UP IN BED, CONVERSING WITH FAMILY. PATIENT DENIES PAIN AT THIS TIME. ALL NEEDS MET, WILL CONTINUE TO MONITOR PATIENT.
--- NOTE | 2019-03-31 17:15 | NUR ---
PATIENT SITING UP IN BED, PATIENT WAS C/O ABDOMINAL CRAMPING 03/23, PATIENT STATED SHE DID NOT WANT A NORCO. EDUCATED PATIENT ON LEVSIN, PATIENT STATED SHE WAS OKAY WITH RECEIVING LEVSIN. PATIENT C/O NAUSEA, MEDICATED PATIENT WITH ZOFRAN PER PROTOCOL. CALL LIGHT WITHIN REACH, BED IN LOW POSITION. WILL CONTINUE TO MONITOR PATIENT.
[2019-03-31 17:24] VITALS: BP 126/81
--- NOTE | 2019-03-31 19:30 | NUR ---
PT A/O x4. MED SURG. DENIES ANY CHEST PAIN OR PRESSURE. PULSES ARE PRESENT. NO EDEMA NOTED. LUNGS CLEAR IN ALL FEILDS. ON RA, DENIES ANY SOB. EQUAL CHEST RISE AND FALL. BOWEL SOUNDS PRESENT x4. DENIES ANY ABD PAIN OR PRESSURE. VOIDS FREELY. SKIN WARM AND INTACT. DENIES ANY PAIN AT THIS TIME. IV ON LH INTACT AND PATENT. NO SIGN OF IRRITATION OR INFILRATION NOTED. FAMILY AND FRIENDS AT BEDSIDE. BED IS AT LOWEST SETTING. CALL LIGHT WITHIN REACH. WILL CONTINUE TO MONITOR.
--- NOTE | 2019-03-31 20:03 | NUR ---
DOCTOR LG AT BEDSIDE WITH CANCER REGISTRY COORDINATOR PHONE TO SPEAK TO PT ABOUT TOMORROWS PROCEDURE.
--- NOTE | 2019-03-31 21:10 | NUR ---
PT SIGNED CONSENT FOR ERCP TOMORROW. PT STATED SHE UNDERSTANDS AND HAS NO FUTHURE QUESTION. SIGN CONSENT PLACED IN CHART.
[2019-03-31 21:49] VITALS: BP 110/60
--- NOTE | 2019-04-01 00:13 | NUR ---
PT RESTING IN BED ON HER TABLET. DOMINIQUE ANY PAIN OR DISTRESS. INFORMED PT ABOUT NPO STATUS FOR TOMORROWS PROCEDURE. PT STATED UNDERSTANDING. BED AT LOWEST SETTING. CALL LIGHT WITHIN REACH. WILL CONTINUE TO MONITOR.
[2019-04-01 05:34] VITALS: BP 97/55
--- NOTE | 2019-04-01 06:42 | NUR ---
PT IS RESTING IN BED. DENIES ANY PAIN OR DISTRESS AT THIS TIME. PT BEEN NPO SINCE MIDNIGHT. BED IS AT LOWEST SETTING. CALL LIGHT WITHIN REACH. IV INTACT AND PATENT. WILL ENDORSE TO AM NURSE.
--- NOTE | 2019-04-01 07:30 | NUR ---
PT ENDORSE TO ME THIS MORNING/ AA/O X4. REMAINS NPO FOR ERCP TODAY AT NOON. MEDSURG. BREATHING EVEN AND UNLABORED ON RA/ NO ACUTE RESP DISTRESS OR SOB NOTED. BOWEL SOUNDS ACTIVE IN ALL FOUR QUADS, DENIES ANY ABD PAIN OR DISCOMFORT. VOIDS FREELY. AMB. IV TO THE LEFT HAND, INFUSING AT 125ML/HR NO REDNESS OR SWELLING NOTED. CALL LIGHT IN REACH. BED IN LOW POSITION WILL CONTINUE TO MONITOR.
[2019-04-01 07:46] VITALS: BP 110/64
--- NOTE | 2019-04-01 09:45 | NUR ---
REPORT GIVEN TO ALFREDO KRAMER FROM GI LAB/ WIPES DONE.
--- NOTE | 2019-04-01 10:24 | NUR ---
PT C/O OF BACK PAIN 02/20, MEDICATED PER EMAR.
--- NOTE | 2019-04-01 11:07 | NUR ---
REC CALL FROM GI RESIDENTIAL FRAMING CARPENTERALFREDO ASCENCIO, STATED PER DR. MCARTHUR ERCP IS SCHD FOR TOMORROW AT 8AM. PT IS ABLE TO EAT. WILL FOLLOW THROUGH.
--- NOTE | 2019-04-01 11:30 | NUR ---
PT STATED PAIN MED WAS EFFECTIVE. WILL CONTINUE TO MONITOR.
--- NOTE | 2019-04-01 14:00 | NUR ---
PT ABDULLAHI HERNANDEZ X4, TOLERATED WELL. TOLERATED 100% OF LUNCH DENIES ANY N/V AT THIS TIME, BY HER SIDE.
[2019-04-01 15:20] LABS: CALCIUM 8.2 mg/dL (8.5-10.1); CARBON DIOXIDE 24.2 mmol/L (21-32); CHLORIDE SERUM 106 mmol/L (98-107); CREATININE SERUM 0.8 mg/dL (0.6-1.0); GFR1 > 60 mL/min; GLUCOSE SERUM 112 mg/dL (74-106); MAGNESIUM 1.8 mg/dL (1.8-2.4); PHOSPHOROUS 3.7 mg/dL (2.5-4.9); POTASSIUM SERUM 3.8 mmol/L (3.5-5.1); SODIUM SERUM 142 mmol/L (136-145)
[2019-04-01 16:04] LABS: BASOPHIL % 0.5 % (0-2); PLATELET COUNT 225 x10^3mcL (130-400); RED CELL DISTRIBUTION WIDTH 14.1 % (11.5-14.5)
[2019-04-01 16:50] VITALS: BP 102/57
--- NOTE | 2019-04-01 18:00 | NUR ---
PT C/O ABD PAIN 5/10, MEDICATED PER EMAR. WILL CONTINUE TO MONITOR.
--- NOTE | 2019-04-01 18:50 | NUR ---
NO ACUTE CHANGES AT THIS TIME. NO ACUTE RESP DISTRESS OR SOB NOTED. PT WILL BE NPO AT MIDNIGHT DUE TO ERCP TOMORROW AT 8AM. PT STATED ABD PAIN IS MUCH BETTER. WILL ENDORSE TO INCOMING R.N.
--- NOTE | 2019-04-01 20:00 | NUR ---
RECEIVED PT IN BED WITH FAMILY AT BEDSIDE. PT IS AWAKE, ALERT, ORIENTED X4. SPEECH CLEAR. ABLE TO MAKE NEEDS KNOWN. NO TELE MONITOR NEEDED. DENIES CHEST PAIN. LUNG SOUNDS CLEAR. BREATHING EASILY ON ROOM AIR. DENIES ABD PAIN AT THIS TIME, PT C/O NAUSEA, WILL MEDICATE ORDERED. PT IS VOIDING FREELY. FULL ROM, ABLE TO AMBULATE TO BR. PT ABLE TO REPOSITION SELF. IVF INFUSING TO LEFT HAND AT 50ML/HR. SITE INTACT AND PATENT. SHIFT ASSESSMENT COMPLETED. CALL LIGHT WITHIN REACH. BED IS IN LOWEST POSITION. WILL CONTINUE TO MONITOR CLOSELY.
[2019-04-01 20:59] VITALS: BP 90/54
--- NOTE | 2019-04-01 22:00 | NUR ---
RESTING IN BED APPEARS TO BE SLEEPING IN NO DISTRESS. IVF ONGOING. CALL LIGHT WITHIN REACH. WILL CONTINUE TO MONITOR CLOSELY.
--- NOTE | 2019-04-02 04:00 | NUR ---
PT APPEARS TO BE SLEEPING IN NO DISTRESS. IVF ONGOING. CALL LIGHT WITHIN REACH. BED IS IN LOWEST POSITION. WILL CONTINUE TO MONITOR CLOSELY.
[2019-04-02 05:37] VITALS: BP 101/57
--- NOTE | 2019-04-02 06:18 | NUR ---
PT SLEPT WELL THROUGH OUT THE NIGHT. NPO SINCE MIDNIGHT. NEW BAG LR HUNG AT THIS TIME. HCG WIPES GIVEN FOR ERCP. CHECK LIST COMPLETED. ALL NEEDS TENDED TO. CALL LIGHT WITHIN REACH. WILL ENDORSE TO INCOMING SHIFT.
[2019-04-02 07:20] LABS: CALCIUM 8.1 mg/dL (8.5-10.1); CARBON DIOXIDE 26.1 mmol/L (21-32); CHLORIDE SERUM 105 mmol/L (98-107); CREATININE SERUM 0.8 mg/dL (0.6-1.0); GFR1 > 60 mL/min; GLUCOSE SERUM 83 mg/dL (74-106); POTASSIUM SERUM 3.8 mmol/L (3.5-5.1); SODIUM SERUM 140 mmol/L (136-145)
[2019-04-02 07:22] LABS: BASOPHIL % 0.8 % (0-2); PLATELET COUNT 202 x10^3mcL (130-400); RED CELL DISTRIBUTION WIDTH 14.2 % (11.5-14.5)
--- NOTE | 2019-04-02 07:30 | NUR ---
PT ENDORSE TO ME THIS MORNING. UP IN THE BATHROOM/ CLEANING BODY WITH WIPES. BERATHING EVEN AND UNLABORED ON RA, NO ACUTE RESP DISTRESS OR SOB NOTED. DENIES ANY CP OR PRESSURE. BOWEL SOUNDS ACTIVE IN ALL FOUR QUADS. VOIDS FREELY. AMB. IV TO THE L HAND INTACT AND PATENT INFUSING AT 50 ML/HR OF LR. PT BEEN NPO SINCE MIDNIGHT DUE TO ERCP THIS AM. WILL CONTINUE TO MONITOR.
--- NOTE | 2019-04-02 07:58 | NUR ---
REPORT GIVEN TO ALFREDO KRAMER FROM GI LAB.
[2019-04-02 08:19] VITALS: BP 106/63
--- NOTE | 2019-04-02 08:21 | NUR ---
PT TAKEN TO GI LAB FOR ERCP, PT HEPLOCKED. WLLL CONTINUE TO MONITOR. ONCE RETURNS TO FLOOR.
[2019-04-02 11:03] VITALS: BP 124/71
--- NOTE | 2019-04-02 11:03 | NUR ---
PT BACK FROM GI LAB. VS 124/71, RESP 16, HR 56, TEMP 97.5 O2 SAT 99 % ON 1L NC. BREATHING EVEN AND UNLABORED, NO ACUTE RESP DISTRESS OR SOB NOTED. CALL LIGHT IN REACH. BED IN LOW POSITION/ WILL CONTINUE PLAN OF CARE.
[2019-04-02 11:41] VITALS: BP 118/64
--- NOTE | 2019-04-02 12:46 | NUR ---
1. Recommend cardiac, CCHO diet when medically appropriate/ tolerated. Discussed recommendations with LILIANE Ventura.
--- NOTE | 2019-04-02 12:46 | NUR ---
Initial Nutrition Assessment: 239/B ISABEL MCGHEE IA HR Dx: abd pain, transaminitis, intractable vomiting PMHx: GERD, chronic pancreatitis, gastritis, hypothyroidism, stenosis of pancreatic duct, DM, PSHx: stent in CBD, cholecystectomy Labs: CA 8.1L, AST 158H, ALT 157H Meds: Elavil, norco, synthyroid, zofran Diet: NPO (possible ERCP), (04/01) cardiac PO Intake: not documented Ht: 149.86 cm (59") Wt: 50 kg (110#) BMI: 22.3 kg/m2 Bed scale: unable to access as pt not in room IBW: 145# (66 kg) %IBW: 76 UBW: unable to access Age: 63/F Food Allergies: NKFA Skin: intact Yomi: 21 Edema: none GI: c/o nausea Last BM: 04/01 Trigger: N/V/D >3d, poor PO >3d Per H&P, Pt is a 63 year old female with a PMH of GERD, chronic pancreatitis, gastritis, stenosis of pancreatic duct, stent in CBD, cholecystectomy, hypothyroidism, DM, came to ED c/o abdominal pain. RDN Visit (04/02): Patient was not in the room as she had gone for ERCP. Per RN Lucina, pt was c/o nausea this morning but no V/D/C. Yesterday pt. was on cardiac diet until midnight and she ate almost all of her meals >75%, per RN. Per progress note (04/01), EGD with Dr. Durant showed some gastritis, ERCP scheduled for 04/02. Problem with: N/V/D/C: nausea Problems with: Chewing/Swallowing: unable to access Current appetite: unable to access Recent wt change: unable to access %wt change: Vitamin/Supplement use: unable to access Special diet at home: unable to access Physical activity: unable to access Nutrition education given: not possible at this time as pt has gone for ERCP. Will be provided during F/U visit Food-drug interactions: none Education given: n/a Estimated Nutritional Needs Based on current body weight 50 kg Energy: 5526-6419 kcal/d (30-35 kcal/kg) - gastritis, inflammation Protein: 50-60 g/d (1.0-1.2 g/kg) - preserve LBM Fluid: 3996-3029 ml/d (1 ml/kcal) or per doctor Nutrition Diagnosis 1. Inadequate oral intake related to planned procedure as evidenced by NPO status. 2. Increased nutrient needs related to gastritis as evidenced by estimated calorie and protein needs. Intervention 1. Recommend cardiac, CCHO diet when medically appropriate/ tolerated. Discussed recommendations with MOTOR OVERHAULER Audrey. Monitor/Evaluate Goal: PO intake at least 75% of estimated needs Monitor: PO intake, Labs, GI function F/U in 3-5 days as moderate risk
--- NOTE | 2019-04-02 15:42 | NUR ---
PT TOLERATED 100% OF CARDIC/CCHO, NO N/V NOTED. IS C/O ABD PAIN 5/10, MEDICATED PER EMAR. WILL CONTINUE TO MONITOR.
[2019-04-02 15:51] VITALS: BP 111/60
--- NOTE | 2019-04-02 18:42 | NUR ---
NO ACUTE CHANGES AT THIS TIME. NO ACUTE RESP DISTRESS OR SOB NOTED. DENIES ANY ABD PAIN OR DISCOMFORT AT THIS TIME/ STATED PAIN MED ELEVATED DISCOMFORT. IV TO THE L HAND INTACT AND PATENT/ NO REDNESS OR SWELLING NOTED. WILL ENDORSE TO INCOMING RN.
[2019-04-02 19:36] VITALS: BP 94/57
--- NOTE | 2019-04-02 20:58 | NUR ---
AT 2019 PT RECEIVED ZOFRAN FOR NAUSEA , NO EMESIS NOTED, , AT THE MOMENT PT C/O ABD PAIN 03/23 I'LL MEDICATE PT ORDERED PRN WITH LEVSIN SL. LUNG AOUNDS CTA , ABD SOFT TENDER TO TOUCH , BS ACTIVE X4 QUADRANT , PIV INTACT INFUSING WELL , CALL LIGHT WITHIN PT'S REACH , WILL CON'T TO MONITOR AND ASSIST PT WITH CARE.
--- NOTE | 2019-04-03 06:07 | NUR ---
POST DILAUDID PT CONTINUE TO YELL FOR ATIVAN , AMBULATING ON THE [place] SCREAMING FOR PAIN MEDS/ATIVAN , ALFREDO LUNA MEDICATED PT WITH ATIVAN 2MG IVP , PT'S BACK IN HER ROOM IN BED , WILL CON'T TO MONITOR AND ASSIST PT WITH CARE .
--- NOTE | 2019-04-03 06:14 | NUR ---
NO CHANGES OF CONDTION NOTED, ALL DUE MEDS GIVEN NO REACTION NOTED. PIV INTACT INFUSING WELL .
--- NOTE | 2019-04-03 06:16 | NUR ---
I HAVE REVIEWED THE DATA COLLECTION BY TACTICAL DECEPTION PLANS OFFICER (NAME):KIYA GARY ENTERED ON (DATE/TIME): I CONCUR WITH THE DATA AND ANY EXCEPTIONS OR COMMENTS ARE LISTED BELOW:
[2019-04-03 07:06] LABS: BILIRUBIN DIRECT 0.07 mg/dL (0.0-0.2); BILIRUBIN TOTAL 0.2 mg/dL (0.20-1.00)
[2019-04-03 07:15] LABS: ALBUMIN 2.7 g/dL (3.4-5.0); BASOPHIL % 0.5 % (0-2); PLATELET COUNT 199 x10^3mcL (130-400); RED CELL DISTRIBUTION WIDTH 14.2 % (11.5-14.5); TOTAL PROTEIN, SERUM 5.8 g/dL (6.4-8.2)
--- NOTE | 2019-04-03 07:15 | NUR ---
PT RESTING IN BED, VERBAL, AXOX4, CALM AND COOPERATIVE AT THIS TIME, DENIED COVARRUBIAS/CP/PRESSURE, DENIED N/V/D, PERRLA, RESP EVEN, NON-LABORED, NO SOB/COUGH, CHEST RISE SYMMETRICALLY, MEDSURG, PALP PULSES, CAP REFIL < 3 SECS, 2L/MIN, 98%, ABD SOFT AND NON-TENDER TO TOUCH, BS ACTIVE X 4, AMBULATORY, CONTINENT, IV PATENT AND INFUSIGN WELL, DRESSIGN CDI, SKIN C/D/W, ALL NEEDS ADDRESSED AT THIS TIME, SAFETY PROTOCOL FOLLOWED, CONTINUE TO MONITOR
[2019-04-03 07:25] LABS: CALCIUM 8.3 mg/dL (8.5-10.1); CARBON DIOXIDE 27.6 mmol/L (21-32); CHLORIDE SERUM 105 mmol/L (98-107); CREATININE SERUM 0.9 mg/dL (0.6-1.0); GFR1 > 60 mL/min; GLUCOSE SERUM 93 mg/dL (74-106); POTASSIUM SERUM 4.1 mmol/L (3.5-5.1); SODIUM SERUM 141 mmol/L (136-145)
--- NOTE | 2019-04-03 07:47 | NUR ---
RECEIVED REPORT FROM KIYA RN, PT IN NO ACUTE DISTRESS
[2019-04-03 08:37] VITALS: BP 96/60
--- NOTE | 2019-04-03 09:31 | NUR ---
PT IN NO ACUTE DISTRESS, AM MED GIVEN PER MD ORDER VIA EMAR, TAKEN WELL, NO ASE NOTED AT THIS TIME, CONTINUE TO MONITOR
--- NOTE | 2019-04-03 11:03 | NUR ---
SEEN BY DR MCARTHUR, NEW ORDER NTOED, PT MADE AWARE, CONTINUE TO MONITOR
--- NOTE | 2019-04-03 11:48 | NUR ---
PT SLEEPING IN BED, IN NO APPARENT DISTRESS, CONTINUE TO MONITOR
[2019-04-03 11:56] VITALS: BP 96/60
--- NOTE | 2019-04-03 12:31 | NUR ---
PT MADE AWARE OF D/C HOME ORDER, SAID WILL P.U AFTER 230PM
--- NOTE | 2019-04-03 14:17 | NUR ---
SON AT BEDSIDE, SAID WILL DRIVE PT HOME VIA CAR, IV REMOVED, IV CATH TIP INTACT, NO ACTIVE BLEEDING, PT IN NO ACUTE DISTRESS
--- NOTE | 2019-04-03 14:34 | NUR ---
PT IN BED, IN NO ACUTE DISTRES, DC EDUCATION GIVEN TO PT AND TO SON, VERBALLY UNDERSTANDING, PT MADE AWARE THAT IT'S PT'S RESPONSIBILITY TO F/U W/ MD APPOINTMENT AND PCP AFTER DC HOME, DC PAPER SIGNED AND KEPT IN CHART, COPY OF RESULT OF ERGD GIVEN TO PT, QUESTION ASKED AND ANSWERED, NO FURTHER CONCERNS NEEDED WHEN ASKED, ALL BELONGING PACKED HOME W/ PT, NURSING STAFFS WILL ASSIST PT TO LOBBY USING WC, SON WILL DRIVE PT HOME USING FAMILY CAR, PT LIVE W/ AT HOME
[2019-04-17 11:02] VITALS: BP 125/78
== END 2019-04-03 15:24 | disposition home or self-care (01) | DRG 392 ==
LOC: ED 21:11 → MU 03-30 00:14
PROVIDERS: Emergency Medicine; General Practice; Internal Medicine Gastroenterology; ADMIT Internal Medicine
PROC: 0DB78ZX Excision of Stomach, Pylorus, Via Natural or Artificial Opening Endoscopic, Diagnostic (ICD-10-PCS; principal; 2019-03-31 08:30)
PROC: 0DJD8ZZ Inspection of Lower Intestinal Tract, Via Natural or Artificial Opening Endoscopic (ICD-10-PCS; 2019-03-31 08:30)
PROC: 0F798DZ Dilation of Common Bile Duct with Intraluminal Device, Via Natural or Artificial Opening Endoscopic (ICD-10-PCS; 2019-04-02)
PROC: BF101ZZ Fluoroscopy of Bile Ducts using Low Osmolar Contrast (ICD-10-PCS; 2019-04-02)
DX: K29.60 Other gastritis without bleeding (principal); K86.1 Other chronic pancreatitis; K58.1 Irritable bowel syndrome with constipation; F41.8 Other specified anxiety disorders; F43.0 Acute stress reaction; E03.9 Hypothyroidism, unspecified; R74.0 Nonspecific elevation of levels of transaminase and lactic acid dehydrogenase [LDH]; K21.9 Gastro-esophageal reflux disease without esophagitis; K83.8 Other specified diseases of biliary tract; G89.29 Other chronic pain; Z68.22 Body mass index [BMI] 22.0-22.9, adult; Z87.891 Personal history of nicotine dependence; Z88.0 Allergy status to penicillin; Z90.49 Acquired absence of other specified parts of digestive tract; Z83.3 Family history of diabetes mellitus
CPT/HCPCS: 43235; 43260; 45378; C1769; C2625; G0378; J0696; J1170; J1200; J1610; J1885; J2250; J2270; J2310; J2405; J2765; J3010; J3490; J7030; J7120; J8597; Q0092; Q9967

== ENCOUNTER 2019-04-22 20:33 | Inpatient (IN) | payer OTHER ==
[~2019-04-22] VITALS: Ht 149.9 cm; Wt 50.3 kg
[2019-04-22 20:35] VITALS: Ht 149.9 cm; Wt 50.3 kg
--- NOTE | 2019-04-22 20:55 | NUR ---
PT PRESENTS TO THE ED TODAY WITH C/C OF EPIGASTRIC PAIN. PT REPORTS THAT SHE HAS HAD ONGOING EPIGASTRIC PAIN X2 WEEKS AND TOLD SHE HAS A "HERNIA." REPORTS N/V "EVERY 30 MINUTES" FOR THE LAST 2 DAYS. PT IS AWAKE AND ALERT, RESP E/U, NAD NOTED. EMT ROSANNE AT BEDSIDE FOR EKG. AWAITING MSE.
--- NOTE | 2019-04-22 21:21 | NUR ---
PT MEDICATED PER MD ORDER. PT VERBALIZED UNDERSTANDING OF MEDICATION PRIOR TO MEDICATION ADMINISTRATION.
[2019-04-22 21:34] LABS: BASOPHIL % 0.7 % (0-2); PLATELET COUNT 228 x10^3mcL (130-400)
[2019-04-22 21:44] LABS: CALCIUM 8.1 mg/dL (8.5-10.1); CARBON DIOXIDE 28.4 mmol/L (21-32); CHLORIDE SERUM 107 mmol/L (98-107); CREATININE SERUM 0.8 mg/dL (0.6-1.0); GFR1 > 60 mL/min; GLUCOSE SERUM 88 mg/dL (74-106); SODIUM SERUM 144 mmol/L (136-145)
[2019-04-22 21:55] LABS: ALKALINE PHOSPHATASE 127 U/L (46-116); ALT/SGPT 20 U/L (14-59); AST/SGOT 25 U/L (15-37); BILIRUBIN TOTAL 0.34 mg/dL (0.20-1.00); LIPASE 1055 IU/L (73-393); TOTAL PROTEIN, SERUM 6.8 g/dL (6.4-8.2)
[2019-04-22 21:57] LABS: ALBUMIN 3.3 g/dL (3.4-5.0)
--- NOTE | 2019-04-22 23:06 | NUR ---
PT MEDICATED PER MD ORDER. PT VERBALIZED UNDERSTANDING OF MEDICATION PRIOR TO ADMINISTRATION.
[2019-04-22 23:40] LABS: MAGNESIUM 2.1 mg/dL (1.8-2.4); PHOSPHOROUS 4.4 mg/dL (2.5-4.9)
[2019-04-22 23:46] LABS: CHOLESTEROL/HDL RATIO 4.1
[2019-04-23] MEDS ORDERED: EUTHYROX100 MCG PO (00:02)
--- NOTE | 2019-04-23 01:04 | NUR ---
REPORT GIVEN TO ALFREDO LEONG, TO ASSUME CARE FOR PT.
--- NOTE | 2019-04-23 01:11 | NUR ---
PT TRANSPORTED TO MED SURG BY EMT REX VIA WHEELCHAIR. PT AWAKE, AAOX4, RESP E/U, NAD NOTED. PT VERBALIZED UNDERSTANDING OF CARE PLAN.
[2019-04-23 01:25] VITALS: BP 116/65
--- NOTE | 2019-04-23 01:35 | NUR ---
RECEIVED PT FROM ER, PT ADMIT FOR ACUTE PANCREATITIS, PT IS A/O X4, VERBAL RESPONSIVE, LUNG SOUND CLEAR BILATEARL, NO COUGH, NO SOB. PT DENY ANY CHEST PAIN OR DISCOMFORT, BOWEL SOUND PRESENT ALL 4 QUADRANTS, C/O ABD PAIN 10/10, PEDAL PULSE PRESENT BOTH FEET, NO EDEMA, IV AT RIGHT AC, NO LEAKING, NO INFILTRAITON. ALL ADLS ASSIST, ALL NEED MET, CALL LIGHT IN REACH, WILL CONTINUE TO MONITOR.
--- NOTE | 2019-04-23 02:00 | NUR ---
PT RECIEVED FROM [facility] FUENTES. PT RESTING IN BED, COMPLAINING OF 7/10 ABD PAIN. BREATHING E/U ON RA. NO SIGNS OF ACUTE DISTRESS NOTED AT THIS TIME. BED AT LOWEST POSITION. CALL LIGHT WITHIN REACH. WILL CONTINUE TO MONITOR.
--- NOTE | 2019-04-23 03:02 | NUR ---
PT COMPLAINING OF 8/10 ABD PAIN. MEDICATED WITH PRN MORPHINE. WILL CONTINUE TO MONITOR.
--- NOTE | 2019-04-23 04:37 | NUR ---
PT COMPLAINING OF NV, MEDICATED WITH PRN ZOFRAN. WILL CONTINUE TO MONITOR.
[2019-04-23 05:15] VITALS: BP 122/70
--- NOTE | 2019-04-23 06:42 | NUR ---
PT RESTING IN BED AT THIS TIME. COMPLAINING OF 7/10 ABD PAIN. MEDICATED WITH PRN MORPHINE. BREATHING E/U ON RA. NO SIGNS OF ACUTE DISTRESS NOTED. ALL NEEDS ADDRESSED. BED AT LOWEST POSITION. CALL LIGHT WITHIN REACH. WILL ENDORSE TO DAY NURSE.
[2019-04-23 06:46] LABS: BASOPHIL % 0.7 % (0-2); PLATELET COUNT 217 x10^3mcL (130-400); RED CELL DISTRIBUTION WIDTH 14.1 % (11.5-14.5)
[2019-04-23 07:06] LABS: CALCIUM 7.7 mg/dL (8.5-10.1); CARBON DIOXIDE 26.1 mmol/L (21-32); CHLORIDE SERUM 107 mmol/L (98-107); CREATININE SERUM 0.8 mg/dL (0.6-1.0); GFR1 > 60 mL/min; GLUCOSE SERUM 92 mg/dL (74-106); POTASSIUM SERUM 3.8 mmol/L (3.5-5.1); SODIUM SERUM 143 mmol/L (136-145)
[2019-04-23 07:08] LABS: LIPASE 1989 IU/L (73-393)
[2019-04-23 08:16] VITALS: BP 110/63
--- NOTE | 2019-04-23 08:35 | NUR ---
PO MEDICATIONS GIVEN TO ZHANE, STUDENT NURSE, TO GIVE WITH HIS INSTRUCTOR.
--- NOTE | 2019-04-23 09:43 | NUR ---
PATIENT GIVEN MORPHINE PER OCT FOR PAIN / TO ABDOMEN WELL ZOFRAN PER MAR FOR NAUSEA WITH DRY HEAVES AND SMALL AMOUNT OF CLEAR EMESIS. PROVIDED WITH EMESIS BAG. STUDENT TO ATTEMPT TO GIVE PO MEDS WITH INSTRUCTOR IN 30-60 MINUTES IF NAUSEA IMPROVES.
--- NOTE | 2019-04-23 10:35 | NUR ---
DR. MCARTHUR AT BEDSIDE WITH KISHA RN, INTERPRETING. PATIENT REPORTING STRESS AT HOME, NO ALCOHOL USE FOR YEARS. PER DR. MCARTHUR, XRAY WILL BE DONE TO EVALUATE STENT WITH POSSIBLE REMOVAL. MAY NEED REFERRAL TO ANOTHER FACILITY TO EVALUATE CHRONIC PANCREATITIS. POSSIBLE PSYCH REFERRAL FOR HOME STRESS. PATIENT ASSISTED TO BEDSIDE COMMODE AND BACK TO BED. CONTINUES WITH NAUSEA AND ABDOMINAL PAIN. DR. MCARTHUR AWARE. WILL MONITOR.
--- NOTE | 2019-04-23 12:15 | NUR ---
MD ROUNDS WITH DR. LYONS, ATTDG PHYSICIAN. INFORMED OF DR. MCARTHUR'S RECOMMENDATION FOR [facility] TO BE CONTINEUD UPON DISCHARGE, OUTPATIENT REFERRAL FOR FURTHER WORK UP, AND POSSIBLE PYSCHOLOGICAL CONSULT FOR STRESSFUL ENVIRONMENT AT HOME WHICH MAY BE CONTRIBUTING TO PATIENT'S CHRONIC PANCREATITIS.
--- NOTE | 2019-04-23 14:36 | NUR ---
PATIENT ASLEEP, REGULAR RESPS. BED LOW, CALL LIGHT WITHIN REACH. WILL MONITOR.
[2019-04-23 16:57] VITALS: BP 107/52; BP 114/68
[2019-04-23 17:12] LABS: microscopic required? NO
[2019-04-23 17:24] LABS: urine erythrocyte NEGATIVE (NEGATIVE)
[2019-04-23 17:34] LABS: AMPHETAMINE QUAL UR NONE DETECTED (See below)
--- NOTE | 2019-04-23 19:14 | NUR ---
REPORT GIVEN TO ALFREDO ECHOLS. ASSISTED PATIENT TO BEDSIDE COMMODE. RENAL DIALYSIS RN TO ASSIST WITH GETTING BACK TO BED. AT BEDSIDE. NS 125ML/HR TO RAC WITHOUT COMPLICATIONS. CARE ENDORSED.
--- NOTE | 2019-04-23 19:42 | NUR ---
RECEIVED AWAKE AND VERBALLY RESPONISVE. ABLE TO MAKE NEEDS KNOW, AT BEDSIDE VERY SUPPORTIVE OF PATIENT'S CURRENT PLAN OF CARE. SKIN WARM AND DRY TO TOUCH. RESPIRATION EVEN AND UNLABORED. ASSSITED TO BEDSIDE COMMODE FOR BLADDER ELIMINATION. GOOD PERICARE RENDERED. CALL LIGHT WITHIN REACH.
[2019-04-23 20:44] VITALS: BP 100/63
--- NOTE | 2019-04-24 00:01 | NUR ---
EYES CLOSED, SOUNDS ASLEEP, AROUSABLE TO VERBAL SRIMULI. NO S/S OF PAIN/DISCOMFORT.CALL LIGHT WITHIN REACH.BED LOCKED AND IN LOWEST POSITION.
[2019-04-24 05:31] VITALS: BP 100/56
[2019-04-24 06:07] LABS: BASOPHIL % 0.6 % (0-2); PLATELET COUNT 195 x10^3mcL (130-400); RED CELL DISTRIBUTION WIDTH 13.8 % (11.5-14.5)
[2019-04-24 06:18] LABS: CALCIUM 8.1 mg/dL (8.5-10.1); CARBON DIOXIDE 27.3 mmol/L (21-32); CHLORIDE SERUM 111 mmol/L (98-107); CREATININE SERUM 0.7 mg/dL (0.6-1.0); GFR1 > 60 mL/min; GLUCOSE SERUM 82 mg/dL (74-106); MAGNESIUM 1.9 mg/dL (1.8-2.4); PHOSPHOROUS 3.2 mg/dL (2.5-4.9); POTASSIUM SERUM 4.3 mmol/L (3.5-5.1); SODIUM SERUM 143 mmol/L (136-145)
--- NOTE | 2019-04-24 06:34 | NUR ---
ALL DUE MEDICATIONS GIVEN AND WELL TOLERATED. ABDOMINAL PAIN TOLERABLE AT THIS TIME. CALL LIGHT WITHIN REACH. ALLNEEDS ATTENDED.
--- NOTE | 2019-04-24 07:30 | NUR ---
SEEN IN BED AAOX4. NO RESP DISTRESS NOTED. BREATHING E/U ON ROOM AIR. KEPT NPO, PATIENT MADE AWARE. STATED ABDOMINAL PAIN IS 1/10 ON PAIN SCALE, MILD NAUSEA. IVF NS TO RAC IV SITE INFUSING AT 125ML/HR. CALL LIGHT PLACED WITHIN EASY REACH. SIDERAILS UP X2.
[2019-04-24 08:25] VITALS: BP 117/68
--- NOTE | 2019-04-24 09:51 | NUR ---
DOCTOR LYUBOV AT BEDSIDE. PATIENT MADE AWARE OF ERCP PLAN FOR THIS AM. INTERPRETED BY GI NURSE.
--- NOTE | 2019-04-24 10:24 | NUR ---
[place] [facility] [facility] [place] [facility].
[2019-04-24 11:53] LABS: ALKALINE PHOSPHATASE 125 U/L (46-116); ALT/SGPT 43 U/L (14-59); AST/SGOT 50 U/L (15-37); LIPASE 244 IU/L (73-393)
[2019-04-24 11:57] LABS: AMYLASE 116 U/L (25-115)
[2019-04-24 12:16] VITALS: BP 122/63
--- NOTE | 2019-04-24 12:30 | NUR ---
BACK FROM [facility], SEEN AAOX4. NO RESP DISTRESS NOTED ON ROOM AIR. STATED PAIN TO EPIGASTRIC AREA 1/10 AND BACK PAIN 3/10 ON PAIN SCALE. IV TO RAC PATENT, NS RECONNECTED INFUSING AT 125ML/HR.
--- NOTE | 2019-04-24 13:23 | NUR ---
STATED HAVING NAUSEA AFTER FULL LIQUID DIET LUNCH, SCHEDULED REGLAN IV GIVEN, NORCO 1 TAB PO X1 GIVEN FOR BACK PAIN. IVF NS AT 125ML/HR CONTINUED. WILL CONTINUE TO MONITOR.
--- NOTE | 2019-04-24 14:54 | NUR ---
SEEN BY DOCTOR JOSE M, NOTED NEW ORDER FROM [facility].
[2019-04-24 16:24] VITALS: BP 102/65
[2019-04-24 19:39] VITALS: BP 98/60
--- NOTE | 2019-04-24 19:58 | NUR ---
PT CURRENTLY RESTING IN BED, NO ACUTE DISTRESS. A/O X4. NO TELE, MED/SURG. DENIES CHEST PAIN. PULSES PALPABLE IN ALL EXTREMITIES, NO EDEMA NOTED. LUNG SOUNDS CTA BILATERALLY, DENIES SOB. BOWEL SOUNDS ACTIVE, LAST BM 04/23/19, C/O ABD PAIN 10/21, PT STATES TOLERABLE. VOIDING WELL. AMBULATORY. SKIN INTACT. IV PATENT AND INTACT. BED IN LOWEST POSITION, SIDE RAILS UP X2, CALL LIGHT WITHIN REACH. WILL CONTINUE TO MONITOR.
--- NOTE | 2019-04-25 01:28 | NUR ---
PT CURRENTLY RESTING IN BED, NO ACUTE DISTRESS. WILL CONTINUE TO MONITOR.
[2019-04-25 05:22] VITALS: BP 104/63
--- NOTE | 2019-04-25 05:50 | NUR ---
PT SLEPT PERIODICALLY THROUGHOUT NIGHT, NO ACUTE DISTRESS. ALL NEEDS MET AND ATTENDED TO. NO SIGNIFICANT CHANGES. IV PATENT AND INTACT. MEDICATED PAIN PER EMAR. BED IN LOWEST POSITION, SIDE RAILS UP X2, CALL LIGHT WITHIN REACH. WILL ENDORSE CARE TO ONCOMING NURSE.
[2019-04-25 06:50] LABS: BASOPHIL % 1.3 % (0-2); PLATELET COUNT 186 x10^3mcL (130-400); RED CELL DISTRIBUTION WIDTH 13.8 % (11.5-14.5)
[2019-04-25 07:29] LABS: CARBON DIOXIDE 28.4 mmol/L (21-32); CHLORIDE SERUM 109 mmol/L (98-107); CREATININE SERUM 0.7 mg/dL (0.6-1.0); GFR1 > 60 mL/min; GLUCOSE SERUM 87 mg/dL (74-106); POTASSIUM SERUM 4.2 mmol/L (3.5-5.1); SODIUM SERUM 144 mmol/L (136-145)
--- NOTE | 2019-04-25 07:40 | NUR ---
PT LYING IN BED, A/A OX4. NO APPARENT DISTRESS. BREAHTING EQUAL/ UNLABORED ON RA IVF RUNNING AT 125ML/HR. NO REDNESS/ PAIN/ SWELLING AT IV SITE. C/O PAIN IN ABD 11/21. TOLERABLE AT THIS TIME. BED IN LOW POSITION, CALL LIGHT IN REACH. WILL CONTINUE TO MONITOR
[2019-04-25 07:44] VITALS: BP 124/69
--- NOTE | 2019-04-25 11:56 | NUR ---
PT SITTING UP IN CHAIR. A/A, RESPIRATIONS EQUAL/ UNLABORED, IN NO APPARENT DISTRESS. NO C/O PAIN AT THIS TIME. IVF RUNNING AT 125ML/HR. WILL CONTINUE TO MONITOR
[2019-04-25] MEDS ORDERED: AMITIZA24 MC1 PO (13:49)
[2019-04-25] MEDS ORDERED: SEN PO (13:49)
[2019-04-25] MEDS ORDERED: ELA25 PO (13:53)
[2019-04-25] MEDS ORDERED: MAGL PO (13:57)
[2019-04-25 14:38] VITALS: BP 124/69
[2019-04-25 14:49] VITALS: BP 124/69
--- NOTE | 2019-04-25 15:00 | NUR ---
NURSING CO-SIGN THE DOCUMENTATION ENTERED BY THE RN TINO HAS BEEN REVIEWED. REVIEWED/CO-SIGNED BY: Marianne Sanchez DOCUMENTATION DONE BY:OTILIO ESPINAL
[2019-04-25 15:49] VITALS: BP 104/68
--- NOTE | 2019-04-25 16:11 | NUR ---
PT DC'D HOME A/A OX4. PT AMBUL[facility] TO [facility] ACCOMPANIED BY RN LACTATION. DC'D TO HOME. DISCHARGE INSTRUCTIONS REVIEWED WITH PT AND SON. EDUCATION ON PANCREATITIS AND NEW MEDICATIONS PROVIDED TO PT AND SON. PT AND SON VERBALIZED UNDERSTANDING. FOLLOW UP INSTRUCTIONS WITH DR MCARTHUR AND PCP WERE PROVIDED. PRESCRIPTIONS GIVEN. IV REMOVED W/ CATHETER INTACT, SITE HAS NO REDNESS/SWELLING. ALL BELONGINGS WITH PT. PT DENIES PAIN/ DISCOMFORT AT TIME OF DISCHARGE
== END 2019-04-25 16:11 | disposition home or self-care (01) | DRG 391 ==
LOC: ED 20:33 → MU 23:14
PROVIDERS: Emergency Medicine; Internal Medicine; Internal Medicine Gastroenterology; ADMIT Internal Medicine
PROC: 0FPB8DZ Removal of Intraluminal Device from Hepatobiliary Duct, Via Natural or Artificial Opening Endoscopic (ICD-10-PCS; principal; 2019-04-24 10:00)
PROC: 0F798ZZ Dilation of Common Bile Duct, Via Natural or Artificial Opening Endoscopic (ICD-10-PCS; 2019-04-24 10:00)
DX: K29.70 Gastritis, unspecified, without bleeding (principal); K85.90 Acute pancreatitis without necrosis or infection, unspecified; E03.9 Hypothyroidism, unspecified; E78.5 Hyperlipidemia, unspecified; M81.0 Age-related osteoporosis without current pathological fracture; Z68.22 Body mass index [BMI] 22.0-22.9, adult; Z87.891 Personal history of nicotine dependence; Z88.0 Allergy status to penicillin; F41.9 Anxiety disorder, unspecified; Z83.3 Family history of diabetes mellitus; Z80.51 Family history of malignant neoplasm of kidney; E83.51 Hypocalcemia; F32.9 Major depressive disorder, single episode, unspecified
CPT/HCPCS: 43260; 83880; C1769; C9113; G0378; J1610; J2270; J2405; J2704; J2765; J3010; J7030; J7120; Q0092; Q9967

== ENCOUNTER 2019-05-01 22:10 | Inpatient (IN) | payer OTHER ==
[~2019-05-01] VITALS: Ht 149.9 cm; Wt 49.9 kg
[~2019-05-01 22:10] MED LIST changes: +AMITIZA24 MC1 PO; +ELA25 PO; +EUTHYROX100 MCG PO; +MAGL PO; +SEN PO
[2019-05-01 22:16] VITALS: Ht 149.9 cm; Wt 49.9 kg
--- NOTE | 2019-05-01 22:51 | NUR ---
PT AMBULATING TO RESTROOM WITH STEADY GAIT TO PROVIDE URINE SAMPLE AT THIS TIME
--- NOTE | 2019-05-01 22:52 | NUR ---
PT PRESENTS TO ED WITH C/O EPIGASTRIC PAIN ON AND OFF FOR OVER A MONTH NOW PT STATES THAT SHE WAS HOSPITALIZED A WEEK AGO FOR PANCREATITIS HOWEVER TWO DAYS AGO THE PAIN AND N/V CAME BACK. PT STATES 10/10 EPIGASTRIC PAIN WITH N/V APPROX A DOZEN TIMES SINCE THE PAIN STARTED. DAUGHTER AT BEDSIDE. AWAITING MSE AT THIS TIME. PT CONNECTED TO FULL CM AND PULSE OX MONITORS. NAD AT THIS TIME. AWAITING NEW ORDERS TO MEDICATE FOR PAIN MANAGEMENT. PT AWARE
--- NOTE | 2019-05-01 23:10 | NUR ---
MD VALLES AT BEDSIDE FOR MSE
[2019-05-01 23:31] LABS: PLATELET COUNT 214 x10^3mcL (130-400); RED CELL DISTRIBUTION WIDTH 13.5 % (11.5-14.5)
[2019-05-01 23:40] LABS: CALCIUM 8.6 mg/dL (8.5-10.1); CARBON DIOXIDE 29.1 mmol/L (21-32); CHLORIDE SERUM 105 mmol/L (98-107); CREATININE SERUM 0.8 mg/dL (0.6-1.0); GFR1 > 60 mL/min; GLUCOSE SERUM 86 mg/dL (74-106); SODIUM SERUM 141 mmol/L (136-145)
[2019-05-01 23:45] LABS: ALBUMIN 3.8 g/dL (3.4-5.0); ALKALINE PHOSPHATASE 138 U/L (46-116); ALT/SGPT 30 U/L (14-59); AST/SGOT 31 U/L (15-37); BILIRUBIN TOTAL 0.4 mg/dL (0.20-1.00); LIPASE 181 IU/L (73-393); TOTAL PROTEIN, SERUM 7.6 g/dL (6.4-8.2)
--- NOTE | 2019-05-02 01:33 | NUR ---
MD VALLES PT CURRENTLY REPORTING OF PAIN WITH ONSET OF NAUSEA WITH PAIN. AWIATING NEW ORDERS AT THIS TIME
[2019-05-02] MEDS ORDERED: LEVOTHYROXIN0.075 M2 PO (02:53)
[2019-05-02] MEDS ORDERED: GABAPENTIN100 M2 PO (02:53)
--- NOTE | 2019-05-02 03:28 | NUR ---
REPORT GIVEN TO SANDRA FUENTES
[2019-05-02 03:59] LABS: MAGNESIUM 2.2 mg/dL (1.8-2.4)
--- NOTE | 2019-05-02 04:00 | NUR ---
PT RECIEVED FROM ED VIA [facility] ACCOMPANIED BY NURSE. PT ADMITTING DIAGNOSIS ILEUS. PT A/OX4, CALM AND COOPERATIVE AT THIS TIME. M/S PT, DENIES CP, NV, DIZZINESS, AND PALPATATIONS. PALPABLE PULSES, NO EDEMA NOTED. BREATHING E/U ON RA. ABD SOFT AND ROUND, PT STATES EPIGASTRIC PAIN ON PALPATION. AMBULATORY AT BASELINE. BED AT LOWEST POSITION. CALL LIGHT WITHIN REACH. WILL CONTINUE TO MONITOR.
[2019-05-02 04:01] LABS: CHOLESTEROL/HDL RATIO 4.6
--- NOTE | 2019-05-02 04:01 | NUR ---
PT COMPLAINING OF 9/10 EPIGASTRIC PAIN AND NAUSEA. MEDICATED PT WITH PRN TORADOL AND ZOFRAN. WILL CONTINUE TO MONITOR.
[2019-05-02 04:11] VITALS: BP 106/62
--- NOTE | 2019-05-02 05:59 | NUR ---
PT RESTING IN BED COMFORTABLY AT THIS TIME. NO S/S OF PAIN OR DISCOMFORT NOTED. BREATHING E/U ON RA. BED AT LOWEST POSITION. CALL LIGHT WITHIN REACH. WILL ENDORSE TO DAY NURSE.
[2019-05-02 07:25] LABS: BASOPHIL % 0.5 % (0-2); CALCIUM 7.6 mg/dL (8.5-10.1); CARBON DIOXIDE 27.4 mmol/L (21-32); CHLORIDE SERUM 107 mmol/L (98-107); CREATININE SERUM 0.8 mg/dL (0.6-1.0); GFR1 > 60 mL/min; GLUCOSE SERUM 78 mg/dL (74-106); LIPASE 527 IU/L (73-393); PLATELET COUNT 195 x10^3mcL (130-400); POTASSIUM SERUM 3.9 mmol/L (3.5-5.1); RED CELL DISTRIBUTION WIDTH 13.9 % (11.5-14.5); SODIUM SERUM 141 mmol/L (136-145)
--- NOTE | 2019-05-02 07:50 | NUR ---
RECEIVED PATIENT RESTING IN BED, NO ACUTE DISTRESS NOTED. PATIENT DENIES PAIN PAIN. PATIENT C/O NAUSEA & HEADACHE. PATIENT A/OX4. BOWEL SOUNDS ACTIVE X4. PATIENT C/O ABDOMINAL DISCOMFORT 5/10, PATIENT STATES ITS TOLERABLE. NS IV INFUSING TO RAC AT 100 ML/HR, IV SITE CDI & PATENT, NO S/S OF INFILTRATION. CALL LIGHT WITHIN REACH, BED IN LOW POSITION, WILL CONTINUE TO MONITOR.
[2019-05-02 08:18] VITALS: BP 95/51
--- NOTE | 2019-05-02 09:29 | NUR ---
PATIENT WAS C/O OF A HEADACHE, MEDICATED PATIENT WITH TYLENOL PER PROTOCOL (SEE EMAR). CALL LIGHT WITHIN REACH, BED IN LOW POSITION. WILL CONTINUE TO MONITOR.
--- NOTE | 2019-05-02 13:30 | NUR ---
PATIENT SLEEPING IN BED, NO ACUTE DISTRESS NOTED. ALL NEEDS MET AT THIS TIME. CALL LIGHT WITHIN REACH, WILL CONTINUE TO MONITOR.
[2019-05-02 17:16] VITALS: BP 103/61
--- NOTE | 2019-05-02 17:33 | NUR ---
DB2 DEVELOPER IRIS AWARE PATIENT WAS C/O SORE THROAT, LILIANE SIMMONS GAVE TORB FOR CEPACOL 1 CHAIM MM Q2HP. WILL CARRY OUT TORB ORDERS AT THIS TIME.
--- NOTE | 2019-05-02 19:20 | NUR ---
PT RECIEVED FROM DAY NURSE. PT RESTING IN BED AT THIS TIME. DENIES PAIN OR DISCOMFORT. A/O X4, CALM AND COOPERATIVE. BREATHING E/U ON RA. DENIES SOB. PALPABLE PULSES, NO EDEMA NOTED. ABD SOFT AND ROUND, STATES SLIGHT PAIN TO PALPATION IN EPIGASTRIC AREA. DENIES NEED FOR PAIN MEDS. AMBULATORY AT BASELINE. IV TO RAC CDI. BED AT LOWEST POSITION. CALL LIGHT WITHIN REACH. WILL CONTINUE TO MONITOR.
[2019-05-02 20:37] VITALS: BP 112/58
--- NOTE | 2019-05-03 00:45 | NUR ---
REC'D REPORT FROM PAPO FUENTES. PT APPEARS TO BE SLEEP. NO S/SX OF PAIN NOTED. BREATHING EVEN/UNLABORED ON RA. WILL CONTINUE TO MONITOR.
[2019-05-03 01:55] LABS: microscopic required? NO
[2019-05-03 02:05] LABS: urine erythrocyte NEGATIVE (NEGATIVE)
[2019-05-03 02:14] LABS: AMPHETAMINE QUAL UR NONE DETECTED (See below)
--- NOTE | 2019-05-03 02:51 | NUR ---
PT RESTING IN BED WITH EYES CLOSED. NO SIGNS OF DISTRESS NOTED. BREATHING EVEN/UNLABORED ON RA. CALL LIGHT WITHIN REACH, BED AT LOWEST POSITION. WILL CONTINUE TO MONITOR.
[2019-05-03 05:19] VITALS: BP 111/58
--- NOTE | 2019-05-03 06:05 | NUR ---
PT RESTING IN BED WITH EYES CLOSED. AWAKENS WITH VERBAL STIMULI. NO SIGNS OF DISTRESS NOTED. BREATHING EVEN/UNLABORED ON RA. C/O ABD PAIN 8/10 AND NAUSEA. SCHEDULED REGLAN AND PRN TORADOL GIVEN PER ORDER. PT REPORTS HAVING BM X1 LAST NIGHT. NO SIGNIFICANT CHANGES DURING SHIFT. CALL LIGHT WITHIN REACH, BED AT LOWEST POSITION. WILL ENDORSE TO DAY NURSE.
[2019-05-03 06:37] LABS: BASOPHIL % 1.1 % (0-2); PLATELET COUNT 160 x10^3mcL (130-400); RED CELL DISTRIBUTION WIDTH 13.3 % (11.5-14.5)
[2019-05-03 06:53] LABS: CALCIUM 7.9 mg/dL (8.5-10.1); CARBON DIOXIDE 24.4 mmol/L (21-32); CHLORIDE SERUM 108 mmol/L (98-107); CREATININE SERUM 0.7 mg/dL (0.6-1.0); GFR1 > 60 mL/min; GLUCOSE SERUM 75 mg/dL (74-106); MAGNESIUM 1.9 mg/dL (1.8-2.4); PHOSPHOROUS 3.3 mg/dL (2.5-4.9); POTASSIUM SERUM 4.5 mmol/L (3.5-5.1); SODIUM SERUM 140 mmol/L (136-145)
--- NOTE | 2019-05-03 07:48 | NUR ---
SLEEPING BUT AROUSABLE, NO ACUTE DISTRESS NOTED. NO C/O PAIN OR DISCOMFORT. CALL LIGHT WITHIN REACH. WILL CONTINUE WITH PLAN OF CARE.
[2019-05-03 08:13] VITALS: BP 107/63
[2019-05-03 09:41] LABS: BILIRUBIN DIRECT 0.07 mg/dL (0.0-0.2); BILIRUBIN TOTAL 0.4 mg/dL (0.20-1.00)
[2019-05-03 09:47] LABS: ALBUMIN 2.8 g/dL (3.4-5.0); TOTAL PROTEIN, SERUM 5.7 g/dL (6.4-8.2)
--- NOTE | 2019-05-03 09:51 | NUR ---
AMBULATING ON A HALLWAW IN NO DISTRESS. NO C/O PAIN AT THIS TIME.
--- NOTE | 2019-05-03 13:00 | NUR ---
Initial Nutrition Assessment: 238/B ISABEL MCGHEE IA HR Dx: Ileus PMHx: GERD, chronic pancreatitis, gastritis, stenosis of pancreatic duct, hypothyroidism, DM PSHx: stent in CBD, cholecystectomy Labs: CA 7.9L, CHOL 228H, LDL 173H, LIPASE 527H Meds: Colace, reglan, zofran Diet: NPO PO Intake: NPO Ht: 149.86 cm (59") Wt: 49.8 kg (110#) BMI: 22.2 kg/m2 Bed scale: 54.3 kg (119.5#) IBW: 95# (43 kg) %IBW: 115 UBW: 120# Age: 63/F Food Allergies: NKFA Skin: intact Yomi: 20 Edema: none GI: Last BM: 05/01 Trigger: N/V/D >3d, poor PO >3d Per H&P, Pt is a 63 Yo female with a PMH of GERD, chronic pancreatitis, gastritis, stenosis of pancreatic duct, stent in CBD, cholecystectomy, hypothyroidism, DM, who came to ER from home for worsening abdominal pain. Patient also reported "Many" episodes of non bloody vomiting, nausea, decreased appetite. RDN Visit (05/03): Patient was alert and oriented and she said that her appetite is poor. Patient's doet has been progressed to full liquid. Per progress note (05/02), CT A&P: Mildly dilated small bowel loops, probably an Ileus/Cholecystectomy. Problem with: N/V/D/C: some nausea Problems with: Chewing/Swallowing: none Current appetite: poor Recent wt change: lost 10# x 1 month, however admission wt and current wt differs by 19.5#, so likely an error %wt change: n/a Vitamin/Supplement use: none Special diet at home: avoids spicy food, coffee and milk Physical activity: sedentary Nutrition education given: none provided at this time Food-drug interactions: Colace- high fiber w/2754-2492 ml fluids Education given: n/a Estimated Nutritional Needs Based on current body weight 54.3 kg Energy: 3966-9299 kcal/d (25-30 kcal/kg) Protein: 54-65 g/d (1.0-1.2 g/kg) - preserve LBM Fluid: 0081-6204 ml/d (1 ml/kcal) or per doctor Nutrition Diagnosis 1. Inadequate oral intake related to ileus as evidenced by patient being NPO since admission. Intervention 1. Recommend continuing full liquid diet at this time per Dr. Durant's recommendations. 2. Recommend progressing to low fat diet when medically appropriate/tolerated. Monitor/Evaluate Goal: PO intake at least 75% of estimated needs Monitor: PO intake, Labs, GI function F/U in 3-5 days as moderate risk
--- NOTE | 2019-05-03 13:00 | NUR ---
1. Recommend continuing full liquid diet at this time per Dr. Durant's recommendations. 2. Recommend progressing to low fat diet when medically appropriate/tolerated.
--- NOTE | 2019-05-03 14:15 | NUR ---
PT C/O ABD. PAIN AFTER MEALS, MEDICATED WITH TORADOL IVP.
--- NOTE | 2019-05-03 15:00 | NUR ---
PT APPEARS VERY ANXIOUS AND RESTLESS. STATED SHE FEELS LIKE SHE IS HAVING A STROKE, BP 165/88 AND HR 100. FIXED INCOME DIRECTOR. ALYSSA NOTIFIED AND ATIVAN ORDERED. WILL MEDICATE NEEDED.
--- NOTE | 2019-05-03 15:12 | NUR ---
PT MEDICATED WITH ATIVAN IVP FOR ANXIETY PER ORDER.
--- NOTE | 2019-05-03 15:58 | NUR ---
RESTING AT THIS TIME, NO ACUTE DISTRESS NOTED. FAMILY AT BEDSIDE.
[2019-05-03 16:58] VITALS: BP 109/67
--- NOTE | 2019-05-03 18:26 | NUR ---
REMAINS IN NO DISTRESS, AWAKE AND ALERT. NO C/O PAIN AT THIS TIME. PT CALM AND COOPERATIVE. TOLERATED WELL WITH FULL LIQ. DIET. NO N/V NOR ABD. DISCOMFORT AT THIS TIME. IVF INFUSING WELL AND SITE CLEAR. CALL LIGHT WITHIN REACH. WILL BE ENDORSED TO INCOMING SHIFT.
[2019-05-03 19:29] VITALS: BP 92/54
--- NOTE | 2019-05-03 19:30 | NUR ---
RECIEVED PT IN NO ACUTE DISTRESS. AOX4. MED SURG. BREATHING E/U. BOWEL SOUNDS ACTIVE. DENIES ABD PAIN/N/V. IV TO RFA, PATENT. BED IN LOWEST POSITION, 2 SIDE RAILS UP, CALL LIGHT IN REACH. INSTRUCTED TO CALL FOR ASSISTANCE.
--- NOTE | 2019-05-04 01:05 | NUR ---
RESTING IN BED WITH EYES CLOSED. BREATHING E/U. NO ACUTE DISTRESS NOTED. WILL CONTINUE TO MONITOR.
[2019-05-04 04:49] VITALS: BP 109/65
[2019-05-04 06:41] LABS: BASOPHIL % 0.6 % (0-2); PLATELET COUNT 184 x10^3mcL (130-400); RED CELL DISTRIBUTION WIDTH 13.3 % (11.5-14.5)
[2019-05-04 06:49] LABS: CALCIUM 7.4 mg/dL (8.5-10.1); CARBON DIOXIDE 24.4 mmol/L (21-32); CHLORIDE SERUM 111 mmol/L (98-107); CREATININE SERUM 0.7 mg/dL (0.6-1.0); GFR1 > 60 mL/min; GLUCOSE SERUM 79 mg/dL (74-106); POTASSIUM SERUM 4.1 mmol/L (3.5-5.1); SODIUM SERUM 143 mmol/L (136-145)
--- NOTE | 2019-05-04 07:26 | NUR ---
NO C/O ABD PAIN OVERNIGHT. NO ACUTE CHANGES. ENDORSED TO ONCOMING RN
--- NOTE | 2019-05-04 07:30 | NUR ---
PT ENDORSE TO ME THIS MORNING LAYING IN BED RESTING. AA/O X4. BREATHING EVEN AND UNLABORED ON RA, NO ACUTE RESP DISTRESS OR SOB NOTED. MEDSURG/ DENIES ANY CP OR PRESSURE. VOIDS FREELY. AMB. BOWEL SOUNDS ACTIVE IN ALL FOUR QUADS. IV TO THE RFA INFUSING AT 100ML/HR, NO REDNESS OR SWELLING NOTED/ REDNESS OR SWELLING NOTED. CALL LIGHT IN REACH. BED IN LOW POSITION. WILL CONTINUE TO MONITOR.
[2019-05-04 08:01] VITALS: BP 109/64
[2019-05-04] MEDS ORDERED: BENTYL20 MG/2 ML PO (10:51)
[2019-05-04 12:18] VITALS: BP 111/60
[2019-05-04 13:06] VITALS: BP 111/60
--- NOTE | 2019-05-04 14:09 | NUR ---
EXPLAIN DISCHARGE INSTRUCTION, NEW AND CONTINUED MEDS AND FOLLOW UP APPOINTMENT PATIENT MUST MAKE WITH PRIMARY AND GI SPECIALIST, PT STATED SHE HAS HER PRINCESS SET ALREADY. PRIMARY FOR THIS MONDAY AT 915AM AND GI FOR . PT AGREED AND SIGNED ALL DOCUMENTS. PT STATED HE CANT ARRIVE UNTIL 1630 TO PICK HER UP. WILL CONTINUE TO MONITOR.
--- NOTE | 2019-05-04 14:48 | NUR ---
CALLED PT SON STORM STATED WILL BE HERE IN ONE HOUR TO PICK HIS MOM UP.
--- NOTE | 2019-05-04 15:37 | NUR ---
PT SON IS HERE TO TAKE PT HOME. REMOVED IV TO THE RFA, CATHETHER TIP INTACT. NO REDNESS OR SWELLING NOTED. PT BREATHING EVEN AND UNLABORED ON RA, DENIES ANY CP OR ABD PAIN. NICOLASA TOWNSEND WILL BE WHEELING PT DOWNE TO FRONT OF HOSPITAL, SON WILL DRIVE HER HOME.
== END 2019-05-04 15:38 | disposition home or self-care (01) | DRG 389 ==
LOC: ED 22:10 → MU 05-02 03:07
PROVIDERS: Emergency Medicine; Internal Medicine Gastroenterology; ADMIT Internal Medicine
DX: K56.7 Ileus, unspecified (principal); K86.1 Other chronic pancreatitis; M81.0 Age-related osteoporosis without current pathological fracture; K21.9 Gastro-esophageal reflux disease without esophagitis; E11.9 Type 2 diabetes mellitus without complications; E03.9 Hypothyroidism, unspecified; E78.5 Hyperlipidemia, unspecified; Z68.22 Body mass index [BMI] 22.0-22.9, adult; Z88.0 Allergy status to penicillin; Z90.49 Acquired absence of other specified parts of digestive tract; Z83.3 Family history of diabetes mellitus; Z79.899 Other long term (current) drug therapy
CPT/HCPCS: C9113; G0378; J1885; J2060; J2270; J2405; J2765; J7030; Q0092

== ENCOUNTER 2019-07-23 18:38 | Emergency (ER) | payer OTHER ==
[~2019-07-23] VITALS: Ht 149.9 cm; Wt 51.3 kg
[~2019-07-23 18:38] MED LIST changes: +BENTYL20 MG/2 ML PO; +GABAPENTIN100 M2 PO
[2019-07-23 18:46] VITALS: Ht 149.9 cm; Wt 51.3 kg
[2019-07-23 19:13] LABS: BASOPHIL % 0.5 % (0-2); PLATELET COUNT 237 x10^3mcL (130-400); RED CELL DISTRIBUTION WIDTH 13.7 % (11.5-14.5)
[2019-07-23 19:19] LABS: CALCIUM 9.3 mg/dL (8.5-10.1); CARBON DIOXIDE 28.6 mmol/L (21-32); CHLORIDE SERUM 102 mmol/L (98-107); CREATININE SERUM 0.9 mg/dL (0.6-1.0); GFR1 > 60 mL/min; GLUCOSE SERUM 101 mg/dL (74-106); POTASSIUM SERUM 4.5 mmol/L (3.5-5.1); SODIUM SERUM 136 mmol/L (136-145)
[2019-07-23 19:24] LABS: ALBUMIN 3.6 g/dL (3.4-5.0); ALKALINE PHOSPHATASE 245 U/L (46-116); ALT/SGPT 92 U/L (14-59); AST/SGOT 46 U/L (15-37); LIPASE 249 IU/L (73-393); TOTAL PROTEIN, SERUM 7.4 g/dL (6.4-8.2)
[2019-07-23 21:53] VITALS: BP 115/76
== END 2019-07-23 21:53 | disposition home or self-care (01) ==
LOC: ED 18:38
DX: R10.13 Epigastric pain (principal); R11.10 Vomiting, unspecified; Z88.0 Allergy status to penicillin; Z90.49 Acquired absence of other specified parts of digestive tract
CPT/HCPCS: J2765; J3490; J7030

== ENCOUNTER 2019-07-25 12:45 | Inpatient (IN) | payer OTHER ==
[~2019-07-25] VITALS: Ht 152.4 cm; Wt 48.5 kg
[2019-07-25 12:57] VITALS: Ht 152.4 cm; Wt 48.5 kg
[2019-07-25 14:23] LABS: BASOPHIL % 0.4 % (0-2); PLATELET COUNT 198 x10^3mcL (130-400); RED CELL DISTRIBUTION WIDTH 13.8 % (11.5-14.5)
[2019-07-25 14:46] LABS: CALCIUM 9.2 mg/dL (8.5-10.1); CARBON DIOXIDE 26.5 mmol/L (21-32); CHLORIDE SERUM 105 mmol/L (98-107); CREATININE SERUM 0.7 mg/dL (0.6-1.0); GFR1 > 60 mL/min; GLUCOSE SERUM 86 mg/dL (74-106); POTASSIUM SERUM 4.2 mmol/L (3.5-5.1); SODIUM SERUM 142 mmol/L (136-145)
[2019-07-25 14:48] LABS: ALBUMIN 3.9 g/dL (3.4-5.0); ALKALINE PHOSPHATASE 379 U/L (46-116); ALT/SGPT 260 U/L (14-59); AST/SGOT 268 U/L (15-37); BILIRUBIN TOTAL 0.4 mg/dL (0.20-1.00); TOTAL PROTEIN, SERUM 7.9 g/dL (6.4-8.2)
[2019-07-25 14:56] LABS: LIPASE 650 IU/L (73-393)
[2019-07-25 17:27] LABS: PHOSPHOROUS 3.6 mg/dL (2.5-4.9)
[2019-07-25 17:49] LABS: FREE T4 1.9 ng/dL (0.76-1.46)
[2019-07-25 17:53] LABS: FREE THYROXINE INDEX 5.3 ug/dL (1.4-4.5)
[2019-07-25 19:26] VITALS: BP 139/68
[2019-07-25 22:14] VITALS: BP 122/65
[2019-07-26 05:56] VITALS: BP 102/61
[2019-07-26 06:56] LABS: BASOPHIL % 0.6 % (0-2); PLATELET COUNT 200 x10^3mcL (130-400); RED CELL DISTRIBUTION WIDTH 14.3 % (11.5-14.5)
[2019-07-26 07:10] LABS: CALCIUM 8.9 mg/dL (8.5-10.1); CARBON DIOXIDE 23.3 mmol/L (21-32); CHLORIDE SERUM 105 mmol/L (98-107); CREATININE SERUM 0.9 mg/dL (0.6-1.0); GFR1 > 60 mL/min; LIPASE 201 IU/L (73-393); MAGNESIUM 1.9 mg/dL (1.8-2.4); PHOSPHOROUS 3.6 mg/dL (2.5-4.9); POTASSIUM SERUM 4.1 mmol/L (3.5-5.1); SODIUM SERUM 139 mmol/L (136-145)
[2019-07-26 07:25] LABS: GLUCOSE SERUM 59 mg/dL (74-106)
[2019-07-26 08:49] VITALS: BP 98/46
[2019-07-26 08:55] LABS: CHOLESTEROL/HDL RATIO 3.4
[2019-07-26 12:50] VITALS: BP 116/66
[2019-07-26 16:33] VITALS: BP 99/57
[2019-07-26 21:05] VITALS: BP 140/77
[2019-07-27 05:48] VITALS: BP 105/61
[2019-07-27 07:01] LABS: CALCIUM 8.4 mg/dL (8.5-10.1); CARBON DIOXIDE 28.8 mmol/L (21-32); CHLORIDE SERUM 106 mmol/L (98-107); CREATININE SERUM 0.8 mg/dL (0.6-1.0); GFR1 > 60 mL/min; GLUCOSE SERUM 87 mg/dL (74-106); POTASSIUM SERUM 3.9 mmol/L (3.5-5.1); SODIUM SERUM 139 mmol/L (136-145)
[2019-07-27 07:04] LABS: BASOPHIL % 0.5 % (0-2); PLATELET COUNT 192 x10^3mcL (130-400); RED CELL DISTRIBUTION WIDTH 13.9 % (11.5-14.5)
[2019-07-27 08:04] LABS: microscopic required? NO
[2019-07-27 08:14] VITALS: BP 105/65
[2019-07-27 08:16] LABS: urine erythrocyte NEGATIVE (NEGATIVE)
[2019-07-27 10:37] LABS: BILIRUBIN DIRECT 0.1 mg/dL (0.0-0.2); BILIRUBIN TOTAL 0.28 mg/dL (0.20-1.00)
[2019-07-27 10:38] LABS: ALBUMIN 2.6 g/dL (3.4-5.0); TOTAL PROTEIN, SERUM 5.6 g/dL (6.4-8.2)
[2019-07-27] MEDS ORDERED: MIRALAX17 GM/Dose PO (11:12)
[2019-07-27] MEDS ORDERED: AMITIZA24 MC1 PO (11:13)
[2019-07-27 11:56] VITALS: BP 105/65
[2019-07-27 12:37] VITALS: BP 117/75
== END 2019-07-27 13:09 | disposition home or self-care (01) | DRG 440 ==
LOC: ED 12:45 → MU 16:28
PROVIDERS: Emergency Medicine; Internal Medicine Gastroenterology; ADMIT Internal Medicine
DX: K85.90 Acute pancreatitis without necrosis or infection, unspecified (principal); M81.0 Age-related osteoporosis without current pathological fracture; E03.9 Hypothyroidism, unspecified; E11.9 Type 2 diabetes mellitus without complications; K21.9 Gastro-esophageal reflux disease without esophagitis; Z90.49 Acquired absence of other specified parts of digestive tract; Z83.3 Family history of diabetes mellitus; Z80.51 Family history of malignant neoplasm of kidney; F41.9 Anxiety disorder, unspecified; K58.9 Irritable bowel syndrome, unspecified; Z88.0 Allergy status to penicillin
CPT/HCPCS: 82962; 84439; G0378; J1170; J1200; J1956; J2405; J3010; J7030; J8597; Q0092

== ENCOUNTER 2019-08-21 13:32 | Emergency (ER) | payer OTHER ==
[~2019-08-21] VITALS: Ht 152.4 cm; Wt 49.0 kg
[~2019-08-21 13:32] MED LIST changes: +MIRALAX17 GM/Dose PO
[2019-08-21 13:38] VITALS: Ht 152.4 cm; Wt 49.0 kg
[2019-08-21 14:17] LABS: BASOPHIL % 0.8 % (0-2); PLATELET COUNT 224 x10^3mcL (130-400); RED CELL DISTRIBUTION WIDTH 13.2 % (11.5-14.5)
[2019-08-21 14:25] LABS: CHLORIDE SERUM 103 mmol/L (98-107); CREATININE SERUM 0.8 mg/dL (0.6-1.0); GFR1 > 60 mL/min; GLUCOSE SERUM 86 mg/dL (74-106); POTASSIUM SERUM 3.9 mmol/L (3.5-5.1); SODIUM SERUM 139 mmol/L (136-145)
[2019-08-21 14:29] LABS: ALBUMIN 3.6 g/dL (3.4-5.0); ALKALINE PHOSPHATASE 228 U/L (46-116); ALT/SGPT 80 U/L (14-59); AST/SGOT 60 U/L (15-37); BILIRUBIN TOTAL 0.3 mg/dL (0.20-1.00); LIPASE 148 IU/L (73-393); TOTAL PROTEIN, SERUM 7.4 g/dL (6.4-8.2)
[2019-08-21 14:31] LABS: microscopic required? NO
[2019-08-21 14:41] LABS: urine erythrocyte NEGATIVE (NEGATIVE)
[2019-08-21 18:28] VITALS: BP 121/75
== END 2019-08-21 18:28 | disposition home or self-care (01) ==
LOC: ED 13:32
PROVIDERS: Student in an Organized Health Care Education/Training Program
DX: K85.90 Acute pancreatitis without necrosis or infection, unspecified (principal); R10.33 Periumbilical pain; R11.2 Nausea with vomiting, unspecified
CPT/HCPCS: J2270; J2405; J7030

== ENCOUNTER 2020-03-23 20:31 | Emergency (ER) | payer OTHER ==
[~2020-03-23] VITALS: Ht 149.9 cm; Wt 49.4 kg
[2020-03-23 20:50] VITALS: Ht 149.9 cm; Wt 49.4 kg
[2020-03-23 21:27] LABS: BASOPHIL % 0.3 % (0-2); PLATELET COUNT 256 x10^3mcL (130-400); RED CELL DISTRIBUTION WIDTH 14.2 % (11.5-14.5)
[2020-03-23 21:42] LABS: CALCIUM 9.1 mg/dL (8.5-10.1); CHLORIDE SERUM 102 mmol/L (98-107); CREATININE SERUM 0.8 mg/dL (0.6-1.0); GFR1 > 60 mL/min; GLUCOSE SERUM 94 mg/dL (74-106); POTASSIUM SERUM 4.4 mmol/L (3.5-5.1); SODIUM SERUM 139 mmol/L (136-145)
[2020-03-23 21:46] LABS: ALBUMIN 3.6 g/dL (3.4-5.0); ALKALINE PHOSPHATASE 694 U/L (46-116); ALT/SGPT 213 U/L (14-59); AST/SGOT 347 U/L (15-37); BILIRUBIN TOTAL 0.6 mg/dL (0.20-1.00); LIPASE 373 IU/L (73-393); TOTAL PROTEIN, SERUM 7.5 g/dL (6.4-8.2)
[2020-03-24 00:46] VITALS: BP 107/67
== END 2020-03-24 00:46 | disposition home or self-care (01) ==
LOC: ED 20:31
DX: K85.90 Acute pancreatitis without necrosis or infection, unspecified (principal); Z90.49 Acquired absence of other specified parts of digestive tract; Z88.0 Allergy status to penicillin; Z98.890 Other specified postprocedural states
CPT/HCPCS: J2270; J2405; J7030

== ENCOUNTER 2020-03-25 00:15 | Inpatient (IN) | payer OTHER ==
[~2020-03-25] VITALS: Ht 157.5 cm; Wt 49.0 kg
[2020-03-25 00:24] VITALS: Ht 157.5 cm; Wt 49.0 kg
[2020-03-25 00:57] LABS: BASOPHIL % 0.4 % (0-2); PLATELET COUNT 252 x10^3mcL (130-400)
[2020-03-25 01:00] LABS: CALCIUM 8.8 mg/dL (8.5-10.1); CARBON DIOXIDE 30.4 mmol/L (21-32); CHLORIDE SERUM 103 mmol/L (98-107); CREATININE SERUM 0.9 mg/dL (0.6-1.0); GFR1 > 60 mL/min; GLUCOSE SERUM 107 mg/dL (74-106); SODIUM SERUM 139 mmol/L (136-145)
[2020-03-25 01:05] LABS: ALKALINE PHOSPHATASE 576 U/L (46-116); ALT/SGPT 131 U/L (14-59); AST/SGOT 109 U/L (15-37); BILIRUBIN TOTAL 0.45 mg/dL (0.20-1.00); LIPASE 219 IU/L (73-393); TOTAL PROTEIN, SERUM 7.1 g/dL (6.4-8.2)
[2020-03-25 01:08] LABS: ALBUMIN 3.3 g/dL (3.4-5.0)
--- NOTE | 2020-03-25 02:09 | NUR ---
PATIENT ARRIVED FROM HOME, C/O GENERALIIZED ABDOMEN PAIN X10 DAYS. PATIENT ALSO STATES NAUSEA AT THIS TIME, NO VOMITING AT THIS TIME. PATIENT GOWNED, AAOX4, NO ACUTE DISTRESS NOTED AT THIS TIME. CALL LIGHT WITHIN REACH, WILL CONTINUE TO MONITOR.
--- NOTE | 2020-03-25 02:12 | NUR ---
PATIENT AMBULTED TO THE RESTROOM WITH A STEADY GAIT.
--- NOTE | 2020-03-25 02:19 | NUR ---
PROVIDER AT BEDSIDE FOR MSE.
--- NOTE | 2020-03-25 03:01 | NUR ---
PATIENT MEDICATED WITH ZOFRAN 4MG AND TORADOL 15MG IV, PLEASE SEE EMAR, PATIENT TOLERATED WELL. WILL REASSES PATIENT IF MORE PAIN MEDICATION NEEDED, CALL LIGHT WITHIN REACH, WILL CONTINUE TO MONITOR.
--- NOTE | 2020-03-25 03:34 | NUR ---
DR. PAUL AT BEDSIDE, TO FIND VEING WITH ULTRASOUND AT THIS TIME. PER CT, PATIENT NEEDS 20 G IV OR BIGGER FOR THE CT SCAN WITH CONTRAST.
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
--- NOTE | 2020-03-25 04:09 | NUR ---
ULTRASOUND AT BEDSIDE
--- NOTE | 2020-03-25 04:17 | NUR ---
PATIENT WAS ONLY GIVEN MORPHINE 2 MG OUT OF MORPHINE 4 MG AT THIS, PATIENT AND DR. WILKERSON AWARE, WILL CONTINUE TO MONITOR.
--- NOTE | 2020-03-25 04:24 | NUR ---
PATIENT PLACED ON 2L OF O2 VIA NC, PATIENT WAS SATING AT 86-90% ROOM AIR. PATIENT IS NOW SATING 97% WITH 2L OF O2, WILL CONTINUE TO MONITOR.
--- NOTE | 2020-03-25 04:25 | NUR ---
PATIENT PLACED ON 2L OF 02 VIA NC ON THE PORTIBLE O2, PATIENT OFF THE FLOOR VIA GURNEY TO GET CT SCAN, INFORMED RENTAL CAR FERRY DRIVER OF PATIENT O2 SAT AND TO KEEP ON 2 VIA NC.
--- NOTE | 2020-03-25 04:29 | NUR ---
INFORMED DR. PAUL OF PATIENT O2 SAT, PER DR. BENNETT TO NOT GIVE PATIENT THE REST OF MORPHINE 2MG OUT OF THE MORPHINE 4 MG. MORPHINE 2 MG WASTED WITH DUC FUENTES.
--- NOTE | 2020-03-25 04:38 | NUR ---
PATIENT RETURNED FROM CT, NO ACUTE DISTRESS NOTED AT THIS TIME, CALL LIGHT WITHIN REACH, WILL CONTINUE TO MONITOR.
--- NOTE | 2020-03-25 05:34 | NUR ---
PATIENT AMBULTED TO RESTROOM AND BACK WITH A STEADY GAIT, NO ACUTE DISTRESS AT THIS TIME. PATIENT STATES 3/10 PAIN AT THIS TIME. PATIENT SATING AT 99% ROOM AIR AT THIS TIME, WILL CONTINUE TO MONITOR.
--- NOTE | 2020-03-25 06:56 | NUR ---
PATIENT HAS HER CLOTHES AND PURSE AT BEDSIDE.
[2020-03-25 07:07] LABS: microscopic required? NO
[2020-03-25 07:25] LABS: UA SPECIFIC GRAVITY <=1.005 (1.005-1.035); urine erythrocyte NEGATIVE (NEGATIVE)
--- NOTE | 2020-03-25 07:30 | NUR ---
REPORT GIVEN TO JAYCEE FUENTES TO ASSUME PATIENT CARE
[2020-03-25 07:37] LABS: AMPHETAMINE QUAL UR NONE DETECTED (See below)
--- NOTE | 2020-03-25 12:31 | NUR ---
PT AMBULATED TO RESTROOM W/O DIFFICULTY AT THIS TIME. PT ASSISTED BACK ON STRETCHER AND PLACED BACK ON MONITOR. CALLIE.
--- NOTE | 2020-03-25 13:20 | NUR ---
RECEIVED PT FROM ED VIA GUERNEY, CAME IN DUE TO ABDOMINAL PAIN AND VOMITING X10 DAYS. AAOX4. DENIES HEADACHE/DIZZINESS. ABLE TO FOLLOW COMMANDS. NO SOB NOTED, LUNG SOUNDS CTA. O2 SA=95%, RA. DENIES COUGH. DENIES CHEST PAIN/PRESSURE, WY=73. C/O 7/10 LEFT ABDOMINAL PAIN, HEARTBURN, NAUSEA, AND MILD BLOATING. ABDOMEN IS SOFT AND MILDLY DISTENDED. BOWEL SOUNDS ACTIVE. VOIDS. IV SITE PATENT AND INTACT. SIDE RAILS UPX2. CALL LIGHT ON REACH. PRIMARY NURSE TALIA AT BEDSIDE FOR CONTINUITY OF CARE
[2020-03-25 13:31] VITALS: BP 114/65
--- NOTE | 2020-03-25 13:40 | NUR ---
NORCO PO GIVEN FOR ABD PAIN 7/10 ASSOCIATED WITH NAUSEA. ZOFRAN IVP GIVEN.
--- NOTE | 2020-03-25 13:50 | NUR ---
MEDICATIONS GIVEN PER EMAR. LR INFUSING WELL AT 125CC/HR. NO REDNESS OR SWELLING TO RFA.
[2020-03-25 16:20] VITALS: BP 107/60
--- NOTE | 2020-03-25 16:44 | NUR ---
MEDICATIONS GIVEN PER EMAR.
--- NOTE | 2020-03-25 19:55 | NUR ---
RECIEVED PT FROM PREVIOUS SHIFT NURSE. PT RESTING COMFORTABLY IN BED, EASILY AROUSABBLE, AOX4, ABLE TO FOLLOW COMMANDS, DENIES COVARRUBIAS, N/V, DIZZINESS, SPEECH CLEAR, NO FACIAL DROOPING NOTED. RR EVEN AND UNLABORED ON RA, CHEST RISING EQUALLY, DENIES SOB OR DIFFICULTY BREATHING. IV RFA, RAC, LHM NS RUNNING AT LR AT 125ML/HR. BED IN LOWEST POSITION, SIDE RAILS UP X2, AND CALL LIGHT WITHIN REACH. WILL CONTINUE TO MONITOR.
[2020-03-25 20:12] VITALS: BP 99/53
--- NOTE | 2020-03-26 01:16 | NUR ---
PT RESTING COMFORTABLY IN BED, EASILY AROUSABLE. RR EVEN AND UNLABORED ON RA, CHEST RISING EQUALLY. NO SIGNS OF ACUTE CHANGE OR DISTRESS NOTED. BED IN LOWEST POSITION, SIDE RAILS UP X2, AND CALL LIGHT WITHIN REACH. MARTHA CONTINUE TO MONITOR.
[2020-03-26 05:50] VITALS: BP 106/63
--- NOTE | 2020-03-26 06:28 | NUR ---
PT RESTING COMFORTABLY IN BED EASILY AROUSABLE. RR EVEN AND UNLABORED ON RA, CHEST RISING EQUALLY. NO SIGNS OF ACUTE CHANGE OR DISTRESS NOTED. ALL NEEDS MET THROUGH OUT THE SHIFT. BED IN LOWEST POSITION, SIDE RAILS UP X2, AND CALL LIGHT WITHIN REACH. WILL ENDORSE CARE TO ONCOMING SHIFT NURSE, AND WILL CONTINUE TO MONITOR, AND WILL ENDORSE CARE TO ONCOMING SHIFT NURSE.
[2020-03-26 06:36] LABS: CALCIUM 8.5 mg/dL (8.5-10.1); CARBON DIOXIDE 32.1 mmol/L (21-32); CHLORIDE SERUM 105 mmol/L (98-107); CREATININE SERUM 0.8 mg/dL (0.6-1.0); GFR1 > 60 mL/min; GLUCOSE SERUM 79 mg/dL (74-106); MAGNESIUM 1.6 mg/dL (1.8-2.4); PHOSPHOROUS 3.9 mg/dL (2.5-4.9); POTASSIUM SERUM 3.8 mmol/L (3.5-5.1); SODIUM SERUM 140 mmol/L (136-145)
[2020-03-26 07:02] LABS: BASOPHIL % 0.4 % (0-2); PLATELET COUNT 244 x10^3mcL (130-400); RED CELL DISTRIBUTION WIDTH 14.1 % (11.5-14.5)
--- NOTE | 2020-03-26 07:30 | NUR ---
RECEIVED REPORT FROM NIGHTSHIFT RN. PATIENT SLEEPING IN THE BED, IV FLUIDS INFUSING. BED ALARM ON. CALL LIGHT AND BEDSIDE TABLE WITHIN REACH. NEEDS ATTENDED
[2020-03-26 08:59] VITALS: BP 100/54
[2020-03-26 12:29] VITALS: BP 100/54
--- NOTE | 2020-03-26 13:10 | NUR ---
PATIENT HAD THE MRCP DONE. DR. MARTINEZ REVIEWED THE RESULTS. PLAN TO DISCHARGE TODAY PENDING DR. MCARTHUR. CALL LIGHT AND BEDSIDE TABLE WITHIN REACH. NEEDS ATTENDED.
[2020-03-26] MEDS ORDERED: ELA25 PO ×2 (13:52→20:21)
[2020-03-26] MEDS ORDERED: AMITIZA24 MC1 PO ×2 (13:53→20:21)
[2020-03-26] MEDS ORDERED: LEVSIN-SL0.125 MG SL ×2 (14:04→20:21)
[2020-03-26] MEDS ORDERED: ACT300 PO ×2 (14:05→20:21)
--- NOTE | 2020-03-26 15:43 | NUR ---
PATIENT ADMITTED FOR ABDOMINAL PAIN. MRCP COMPLETED. REVIEWED. PRINTED AND REVIEWED DISCHARGE INSTRUCTIONS WITH TAPE CALENDER. ALL MEDICATIONS DISCUSSED INDIVIDUALLY. FOLLOW UP CARE DISCUSSED IWTH PATIENT. ALL QUESTIONS AND CONCERNS ADDRESSED. IV ACCESS X3 ALL REMOVED WITHOUT COMPLICATIONS. FAMILY CALLED THE UBER FOR THE PATIENT. THIS RN ESCORTED PATIENT TO LOBBY AND INTO UBER. PATIENT LEFT THE UNIT IN NO APPARENT DISTRESS WITH ALL BELONGINGS
[2020-03-26] MEDS ORDERED: GABAPENTIN100 M2 PO (20:21)
[2020-03-26] MEDS ORDERED: LEVOTHYROXIN0.075 M2 PO (20:21)
[2020-03-27 15:10] LABS: MITOCHONDRIAL ANTIBODY <20.0 Units (0.0-20.0)
== END 2020-03-26 15:39 | disposition home or self-care (01) | DRG 440 ==
LOC: ED 00:15 → MU 06:46
PROVIDERS: Family Medicine; Internal Medicine Gastroenterology; ADMIT Internal Medicine; ATTEND Internal Medicine
DX: K85.90 Acute pancreatitis without necrosis or infection, unspecified (principal); M81.0 Age-related osteoporosis without current pathological fracture; K44.9 Diaphragmatic hernia without obstruction or gangrene; R74.0 Nonspecific elevation of levels of transaminase and lactic acid dehydrogenase [LDH]; F41.9 Anxiety disorder, unspecified; K80.20 Calculus of gallbladder without cholecystitis without obstruction; Z90.49 Acquired absence of other specified parts of digestive tract; Z88.0 Allergy status to penicillin; Z79.899 Other long term (current) drug therapy; Z83.3 Family history of diabetes mellitus; Z80.51 Family history of malignant neoplasm of kidney
CPT/HCPCS: 74181; 83516; G0378; J1885; J2270; J2405; J7030; J7120; Q0092; Q9967

== ENCOUNTER 2020-09-15 13:55 | Emergency (ER) | payer OTHER ==
[~2020-09-15] VITALS: Ht 149.9 cm; Wt 50.8 kg
[~2020-09-15 13:55] MED LIST changes: +ACT300 PO; +LEVSIN-SL0.125 MG SL
[2020-09-15 14:07] VITALS: Ht 149.9 cm; Wt 50.8 kg
[2020-09-15 16:19] LABS: BASOPHIL % 0.7 % (0.2-1.3); PLATELET COUNT 291 x10^3mcL (179-408); RED CELL DISTRIBUTION WIDTH 13.8 % (12.3-17.7)
[2020-09-15 16:21] LABS: CALCIUM 9.1 mg/dL (8.5-10.1); CARBON DIOXIDE 28.9 mmol/L (21-32); POTASSIUM SERUM 4.4 mmol/L (3.5-5.1)
[2020-09-15 16:28] LABS: ALBUMIN 3.7 g/dL (3.4-5.0); BILIRUBIN TOTAL 0.3 mg/dL (0.20-1.00); TOTAL PROTEIN, SERUM 7.7 g/dL (6.4-8.2)
[2020-09-16 18:33] VITALS: BP 112/81
== END 2020-09-15 18:33 | disposition home or self-care (01) ==
LOC: ED 13:55
PROVIDERS: Emergency Medicine
DX: T74.11XA Adult physical abuse, confirmed, initial encounter (principal); Z60.9 Problem related to social environment, unspecified; Z20.828 Contact with and (suspected) exposure to other viral communicable diseases
CPT/HCPCS: Q0162